=== PATIENT | female | born 1955 | race Caucasian/White ===

== ENCOUNTER 2017-06-08 11:20 | Day surgery (SDC) | payer OTHER ==
[~2017-06-08] VITALS: Ht 162.6 cm; Wt 72.2 kg
[~2017-06-08 11:20] MED LIST: LEVSOD25 PO; PENVK500 PO
[2017-06-08] MEDS ORDERED: ASPI325 (11:50)
== END 2017-06-08 14:25 | disposition home or self-care (01) ==
LOC: ORSCSDS 11:20
PROVIDERS: Surgery
PROC: 0DJD8ZZ Inspection of Lower Intestinal Tract, Via Natural or Artificial Opening Endoscopic (ICD-10-PCS; principal; 2017-06-08 12:00)
DX: Z12.11 Encounter for screening for malignant neoplasm of colon (principal); Z86.010 Personal history of colon polyps; E03.9 Hypothyroidism, unspecified; G47.33 Obstructive sleep apnea (adult) (pediatric); F41.8 Other specified anxiety disorders; F17.210 Nicotine dependence, cigarettes, uncomplicated; Z79.899 Other long term (current) drug therapy
CPT/HCPCS: J7120

== ENCOUNTER 2020-06-03 09:38 | Day surgery (SDC) | payer OTHER ==
[~2020-06-03] VITALS: Ht 164 cm; Wt 59.1 kg
[~2020-06-03 09:38] MED LIST changes: +ASPI325; +ATOR20 PO; +LEVSOD112 PO
--- NOTE | 2020-06-03 10:45 | NUR ---
Ambulatory in Day Surgery History, Chart, Medications and Allergies reviewed before start of procedure.Patient confirms NPO status and agrees with scheduled surgery. Patient states colon prep results clear.Lungs clear T/O to Auscultation.
--- NOTE | 2020-06-03 11:26 | NUR ---
06/03/20 1126 Radha Carr History, Chart, Medications and Allergies reviewed before start of procedure. Patient confirms NPO status and agrees with scheduled surgery.PATIENT DETERMINED TO BE ASA APPROPRIATE FOR PROPOFOL SEDATION PRIOR TO START OF PROCEDURE BY DR. ZARAGOZA. 3-LEAD EKG REVIEWED WITH PHYSICIAN PRIOR TO START OF PROCEDURE. MONITOR INTACT WITH CONTINUOUS PULSE OXIMETRY AND INTERMITTENT BP.
--- NOTE | 2020-06-03 12:32 | NUR ---
PRESCRIPTIONS CALLED IN TO [facility] PREFERRED PHARMACY; CIPRO 500 MG PO BID X 3 DAYS, FLAGYLL 500MG PO TID X 3 DAYS TO [facility]
--- NOTE | 2020-06-03 12:45 | NUR ---
Ambulatory in Day Surgery Discharge instructions reviewed with patient. Patient verbalizes understanding. Copy given to patient to take home. Patient States Post-Procedure ride home has been arranged. Discharged via wheelchair to private car for ride home.
== END 2020-06-03 13:04 | disposition home or self-care (01) ==
LOC: ORSCMMR 09:38
PROVIDERS: Internal Medicine Gastroenterology
PROC: 0DBE8ZX Excision of Large Intestine, Via Natural or Artificial Opening Endoscopic, Diagnostic (ICD-10-PCS; principal; 2020-06-03 10:30)
PROC: 0DB78ZX Excision of Stomach, Pylorus, Via Natural or Artificial Opening Endoscopic, Diagnostic (ICD-10-PCS; principal; 2020-06-03 10:30)
PROC: 0DBM8ZX Excision of Descending Colon, Via Natural or Artificial Opening Endoscopic, Diagnostic (ICD-10-PCS; principal; 2020-06-03 10:30)
PROC: 0DB98ZX Excision of Duodenum, Via Natural or Artificial Opening Endoscopic, Diagnostic (ICD-10-PCS; principal; 2020-06-03 10:30)
DX: R10.13 Epigastric pain (principal); R19.7 Diarrhea, unspecified; K52.832 Lymphocytic colitis; D12.4 Benign neoplasm of descending colon; Z86.010 Personal history of colon polyps; R63.4 Abnormal weight loss; K57.30 Diverticulosis of large intestine without perforation or abscess without bleeding; E78.00 Pure hypercholesterolemia, unspecified; E03.9 Hypothyroidism, unspecified; Z79.899 Other long term (current) drug therapy
CPT/HCPCS: 87493; 88305; 88342; A9270; J2250; J2704; J7120

== ENCOUNTER 2022-11-24 13:59 | Emergency (ER) | payer MEDICARE, OTHER ==
[~2022-11-24] VITALS: Ht 162.6 cm; Wt 55.8 kg
[2022-11-24 14:50] LABS: BASOPHILS ABSOLUTE AUTO 0.03 K/mm3 (0.00-0.23); BASOPHILS PERCENT AUTO 1 % (0-2); EOSINOPHILS PERCENT AUTO 0 % (0-6); Hemoglobin 14.5 g/dL (11.5-16.0); IMMATURE GRAN ABSOLUTE AUTO 0.02 K/mm3 (0.00-0.10); IMMATURE GRAN PERCENT AUTO 0 % (0-1); LYMPHOCYTES PERCENT AUTO 44 % (21-46); MONOCYTES ABSOLUTE AUTO 0.43 K/mm3 (0.16-1.47); MONOCYTES PERCENT AUTO 7 % (4-13); Mean Corpuscular HGB 32.7 pg (26.0-34.0); Mean Corpuscular HGB Conc 34.5 g/dL (31.5-36.5); Mean Corpuscular Volume 95 fL (80-100); Mean Platelet Volume 10.3 fL (9.1-12.4); NEUTROPHILS ABSOLUTE AUTO 3.22 K/mm3 (1.96-9.15); NEUTROPHILS PERCENT AUTO 49 % (41-73); Platelet Count 233 K/mm3 (150-400); RDW Coefficient Variation 14.5 % (11.7-14.2); RDW Standard Deviation 50.9 fL (35.1-46.3); Red Blood Cell Count 4.44 M/mm3 (3.80-5.20)
[2022-11-24 15:13] LABS: Alanine Aminotransfer (ALT/SGP 32 U/L (12-78); Albumin, Blood 3.9 g/dL (3.4-5.0); Alk Phos 71 U/L (50-136); Anion Gap 5 mmol/L (6-16); Aspartate Aminotrans (AST/SGOT 20 U/L (12-37); Bilirubin, Total 0.4 mg/dL (0.1-1.0); Blood Urea Nitrogen 10 mg/dL (8-24); Bun/Creatinine Ratio 20.7 (12.0-20.0); CO2, Blood 31 mmol/L (21-32); Calcium, Blood 9.9 mg/dL (8.5-10.1); Chloride, Blood 103 mmol/L (98-108); Creatinine, Blood 0.48 mg/dL (0.40-1.00); Ethanol (Alcohol), Blood, Med <3 mg/dL; Globulin, Blood 3.9 g/dL (2.2-4.0); Glomerular Filtration Rate 104 (60-); Glucose, Blood 90 mg/dL (70-99); Potassium, Blood 3.8 mmol/L (3.5-5.5); Sodium, Blood 139 mmol/L (136-145); Total Protein, Blood 7.8 g/dL (6.4-8.2)
[2022-11-24] MEDS ORDERED: ATOR10 PO (15:51)
[2022-11-24] MEDS ORDERED: MESALAMINE DR400 MG PO (15:51)
[2022-11-24] MEDS ORDERED: EUTHYROX100 MC1 PO (15:51)
[2022-11-24 16:03] LABS: Source, Urine Clean Catch
[2022-11-24 16:07] LABS: Appearance, Urine Clear (Clear); Bilirubin, Urine Neg (Neg); Blood, Urine 1+ (Neg); Color, Urine Yellow (P-Yellow); Glucose Qualitative, Urine Neg (Neg); Ketones, Urine 2+ (Neg); Leukocyte Esterase, Urine Neg (Neg); Nitrite, Urine Neg (Neg); Protein, Urine Neg (Neg); Urobilinogen, Urine NORM (Normal)
[2022-11-24 16:22] LABS: Bacteria Few /hpf; Squamous Epithelial Cells Few /hpf (Few); White Blood Cells, Urine 0-2 /hpf (0-5)
[2022-11-24 16:25] LABS: U Amphetamine Screen Not Detected; U Barbituate Screen Not Detected; U Benzodiazapine Screen Not Detected; U Buprenorphine Screen Not Detected; U Cannabinoids Screen DETECTED; U Cocaine Screen Not Detected; U Methadone Screen Not Detected; U Methamphetamine Screen Not Detected; U Opiates Screen Not Detected; U Oxycodone Screen Not Detected; U Phencyclidine Screen Not Detected; U Propoxyphene Screen Not Detected
[2022-11-24 16:27] LABS: Free Thyroxine 1.34 ng/dL (0.70-1.60)
[2022-11-24 16:28] LABS: Thyroid Stimulating Hormone 1.28 uIU/mL (0.360-4.800)
[2022-11-24 17:00] VITALS: BP 136/82
== END 2022-11-24 17:05 | disposition home or self-care (01) ==
LOC: ER 13:59
PROVIDERS: Emergency Medicine; Student in an Organized Health Care Education/Training Program
DX: R41.0 Disorientation, unspecified (principal); F41.9 Anxiety disorder, unspecified; F17.200 Nicotine dependence, unspecified, uncomplicated
CPT/HCPCS: 70450; 71046; 80053; 81001; 83735; 84439; 84443; 85025; 93005; 93010; 96374; 99285-25; G0480; J2405

== ENCOUNTER 2022-12-30 13:48 | Emergency (ER) | payer MEDICARE, OTHER ==
[~2022-12-30] VITALS: Ht 162.6 cm; Wt 47.6 kg
[~2022-12-30 13:48] MED LIST changes: +ATOR10 PO; +EUTHYROX100 MC1 PO; +MESALAMINE DR400 MG PO
[2022-12-30 14:27] LABS: BASOPHILS ABSOLUTE AUTO 0.03 K/mm3 (0.00-0.23); BASOPHILS PERCENT AUTO 1 % (0-2); EOSINOPHILS PERCENT AUTO 0 % (0-6); Hematocrit 39.9 % (33.0-51.0); Hemoglobin 13.5 g/dL (11.5-16.0); IMMATURE GRAN ABSOLUTE AUTO 0.02 K/mm3 (0.00-0.10); IMMATURE GRAN PERCENT AUTO 0 % (0-1); LYMPHOCYTES ABSOLUTE AUTO 2.27 K/mm3 (0.84-5.20); LYMPHOCYTES PERCENT AUTO 39 % (21-46); MONOCYTES ABSOLUTE AUTO 0.31 K/mm3 (0.16-1.47); MONOCYTES PERCENT AUTO 5 % (4-13); Mean Corpuscular HGB 32.2 pg (26.0-34.0); Mean Corpuscular HGB Conc 33.8 g/dL (31.5-36.5); Mean Corpuscular Volume 95 fL (80-100); Mean Platelet Volume 10.4 fL (9.1-12.4); NEUTROPHILS PERCENT AUTO 55 % (41-73); Platelet Count 232 K/mm3 (150-400); RDW Coefficient Variation 14.6 % (11.7-14.2); RDW Standard Deviation 50.7 fL (35.1-46.3); Red Blood Cell Count 4.19 M/mm3 (3.80-5.20); White Blood Cell Count 5.83 K/mm3 (4.00-11.30)
[2022-12-30 14:40] LABS: Albumin, Blood 3.6 g/dL (3.4-5.0); Albumin/Globulin Ratio 0.9 (0.8-1.8); Bilirubin, Total 0.4 mg/dL (0.1-1.0); Bun/Creatinine Ratio 17.3 (12.0-20.0); Calcium, Blood 9.5 mg/dL (8.5-10.1); Creatinine, Blood 0.46 mg/dL (0.40-1.00); Globulin, Blood 3.8 g/dL (2.2-4.0); Potassium, Blood 3.8 mmol/L (3.5-5.5); Total Protein, Blood 7.4 g/dL (6.4-8.2)
[2022-12-30] MEDS ORDERED: BUSPIRONE HCL7.5 M6 (16:29)
[2022-12-30 17:01] VITALS: BP 140/71
== END 2022-12-30 17:00 | disposition home or self-care (01) ==
LOC: ER 13:48
PROVIDERS: Emergency Medicine
DX: F44.0 Dissociative amnesia (principal); R51.9 Headache, unspecified; F41.9 Anxiety disorder, unspecified; E03.9 Hypothyroidism, unspecified; E78.00 Pure hypercholesterolemia, unspecified; F17.210 Nicotine dependence, cigarettes, uncomplicated; Z79.899 Other long term (current) drug therapy
CPT/HCPCS: 80053; 85025; 99284

== ENCOUNTER 2025-01-13 14:34 | Emergency (ER) | payer MEDICARE ==
[~2025-01-13] VITALS: Ht 162.6 cm; Wt 47.6 kg
[~2025-01-13 14:34] MED LIST changes: -ATOR10 PO; +BUSPIRONE HCL7.5 M6
[2025-01-13] MEDS ORDERED: NS 1,000 ML IV SCH (15:00)
[2025-01-13] MEDS ORDERED: Morphine Sulfate 4 MG/1 ML Injection IV ONE (15:00)
[2025-01-13] MEDS ORDERED: Ondansetron HCl 2 MG / ML 2ML Vial IV ONE (15:00)
[2025-01-13 15:26] LABS: BASOPHILS ABSOLUTE AUTO 0.05 K/mm3 (0.00-0.23); BASOPHILS PERCENT AUTO 0 % (0-2); EOSINOPHILS ABSOLUTE AUTO 0.00 K/mm3 (0.00-0.68); EOSINOPHILS PERCENT AUTO 0 % (0-6); Hematocrit 47.9 % (33.0-51.0); Hemoglobin 16.9 g/dL (11.5-16.0); IMMATURE GRAN ABSOLUTE AUTO 0.10 K/mm3 (0.00-0.10); IMMATURE GRAN PERCENT AUTO 1 % (0-1); LYMPHOCYTES ABSOLUTE AUTO 2.44 K/mm3 (0.84-5.20); LYMPHOCYTES PERCENT AUTO 14 % (21-46); MONOCYTES ABSOLUTE AUTO 1.14 K/mm3 (0.16-1.47); MONOCYTES PERCENT AUTO 7 % (4-13); Mean Corpuscular HGB Conc 35.3 g/dL (31.5-36.5); Mean Corpuscular Volume 90 fL (80-100); NEUTROPHILS ABSOLUTE AUTO 13.80 K/mm3 (1.96-9.15); NEUTROPHILS PERCENT AUTO 79 % (41-73); NRBC ABSOLUTE 0.00 K/mm3 (0.00-0.02); NRBC Auto 0.0 /100 WBC (0.0-0.2); Platelet Count 305 K/mm3 (150-400); RDW Coefficient Variation 14.6 % (11.7-14.2); RDW Standard Deviation 47.6 fL (35.1-46.3)
[2025-01-13 15:42] LABS: Alanine Aminotransfer (ALT/SGP 19.0 U/L (12-78); Albumin, Blood 3.2 g/dL (3.4-5.0); Albumin/Globulin Ratio 0.8 (0.8-1.8); Anion Gap 14.0 mmol/L (3-11); Aspartate Aminotrans (AST/SGOT 16.0 U/L (12-37); Bilirubin, Total 0.6 mg/dL (0.1-1.0); Blood Urea Nitrogen 16.0 mg/dL (8-24); CO2, Blood 25.0 mmol/L (21-32); Calcium, Blood 9.2 mg/dL (8.5-10.1); Chloride, Blood 97.0 mmol/L (98-108); Creatinine, Blood 1.18 mg/dL (0.40-1.00); Globulin, Blood 3.8 g/dL (2.2-4.0); Glucose, Blood 178.0 mg/dL (70-99); Potassium, Blood 4.3 mmol/L (3.5-5.5); Sodium, Blood 132.0 mmol/L (136-145); Total Protein, Blood 7.0 g/dL (6.4-8.2)
[2025-01-13] MEDS ORDERED: PRED20 PO (18:40)
[2025-01-13] MEDS ORDERED: ONDA4ODT MM (18:40)
[2025-01-13 19:01] VITALS: BP 108/80
[2025-01-13] MEDS ORDERED: RX Prepack 2 Tabs Ondansetron ODT 4MG UD ONE (19:45)
[2025-01-17] MEDS ORDERED: LEVSOD100 PO (23:26)
== END 2025-01-13 19:03 | disposition home or self-care (01) ==
LOC: ER 14:34
PROVIDERS: Student in an Organized Health Care Education/Training Program
DX: K52.9 Noninfective gastroenteritis and colitis, unspecified (principal); E78.00 Pure hypercholesterolemia, unspecified; E03.9 Hypothyroidism, unspecified; F17.210 Nicotine dependence, cigarettes, uncomplicated; Z79.899 Other long term (current) drug therapy
CPT/HCPCS: 74177; 80053; 83690; 85025; 96374-59; 99284-25; A9270; J2405; J7030; Q9967

== ENCOUNTER 2025-01-17 17:15 | Inpatient (IN) | payer MEDICARE ==
[~2025-01-17] VITALS: Ht 162.6 cm; Wt 54.2 kg
[~2025-01-17 17:15] MED LIST changes: +ATOR10 PO; +ONDA4ODT MM; +PRED20 PO
[2025-01-17] MEDS ORDERED: NS 1,000 ML IV SCH ×2 (17:35→22:00)
[2025-01-17] MEDS ORDERED: Ondansetron HCl 2 MG / ML 2ML Vial IV ONE (17:35)
[2025-01-17] MEDS ORDERED: HYDROmorphone HCl/Pf 1MG SYR IV ONE ×2 (17:35→21:35)
[2025-01-17 17:54] LABS: Hematocrit 48.1 % (33.0-51.0); Hemoglobin 16.7 g/dL (11.5-16.0); Mean Corpuscular HGB Conc 34.7 g/dL (31.5-36.5); Mean Corpuscular Volume 90 fL (80-100); NRBC ABSOLUTE 0.00 K/mm3 (0.00-0.02); NRBC Auto 0.0 /100 WBC (0.0-0.2); Platelet Count 284 K/mm3 (150-400); RDW Coefficient Variation 13.7 % (11.7-14.2); RDW Standard Deviation 45.3 fL (35.1-46.3)
[2025-01-17 18:20] LABS: BAND PERCENT MAN 18 % (0-8); BASOPHILS ABSOLUTE MAN 0.00 K/mm3 (0.00-0.23); BASOPHILS PERCENT MAN 0 % (0-2); EOSINOPHILS ABSOLUTE MAN 0.05 K/mm3 (0.00-0.68); EOSINOPHILS PERCENT MAN 1 % (0-6); LYMPHOCYTES ABSOLUTE MAN 1.48 K/mm3 (0.84-5.20); LYMPHOCYTES PERCENT MAN 25 % (21-46); MONOCYTES ABSOLUTE MAN 0.35 K/mm3 (0.16-1.47); MONOCYTES PERCENT MAN 6 % (4-13); NEUTROPHILS ABSOLUTE MAN 4.04 K/mm3 (1.96-9.15); SEG NEUTROPHILS PERCENT MAN 50 % (41-73)
[2025-01-17 18:27] LABS: Alanine Aminotransfer (ALT/SGP 21.0 U/L (12-78); Albumin, Blood 3.3 g/dL (3.4-5.0); Albumin/Globulin Ratio 0.8 (0.8-1.8); Anion Gap 10.0 mmol/L (3-11); Aspartate Aminotrans (AST/SGOT 22.0 U/L (12-37); Bilirubin, Total 0.9 mg/dL (0.1-1.0); Blood Urea Nitrogen 22.0 mg/dL (8-24); CO2, Blood 26.0 mmol/L (21-32); Calcium, Blood 9.9 mg/dL (8.5-10.1); Chloride, Blood 98.0 mmol/L (98-108); Creatinine, Blood 0.49 mg/dL (0.40-1.00); Globulin, Blood 4.1 g/dL (2.2-4.0); Glucose, Blood 173.0 mg/dL (70-99); Potassium, Blood 4.3 mmol/L (3.5-5.5); Sodium, Blood 130.0 mmol/L (136-145); Total Protein, Blood 7.4 g/dL (6.4-8.2)
[2025-01-17] MEDS ORDERED: ASPI81CH PO (20:34)
[2025-01-17] MEDS ORDERED: Prochlorperazine Edisylate 10 mg Vial IV ONE (21:35)
[2025-01-17] MEDS ORDERED: Ondansetron HCl 2 MG / ML 2ML Vial IV PRN (21:55)
[2025-01-17] MEDS ORDERED: FLU VACC TS2025(65UP)/MF59C/PF 45 MCG/0.5 ML SYRINGE IM SCH (21:55)
[2025-01-17] MEDS ORDERED: HYDROmorphone HCl/Pf 1MG SYR IV PRN (21:55)
[2025-01-17] MEDS ORDERED: Piperacillin/Tazobactam Sod 3.375 GM in NS 100 ML IV SCH (22:31)
[2025-01-17] MEDS ORDERED: EUTHYROX88 MCG PO (23:26)
[2025-01-18] VITALS (8 sets, daily range): BP systolic 87–146; BP diastolic 60–83
[2025-01-18] MEDS ORDERED: FentaNYL Citrate 50 MCG/ML 2 ML Injection IV PRN ×3 (01:20→11:05)
[2025-01-18 06:01] LABS: Hematocrit 48.3 % (33.0-51.0); Hemoglobin 16.9 g/dL (11.5-16.0); Mean Corpuscular HGB Conc 35.0 g/dL (31.5-36.5); Mean Corpuscular Volume 91 fL (80-100); NRBC ABSOLUTE 0.00 K/mm3 (0.00-0.02); NRBC Auto 0.0 /100 WBC (0.0-0.2); Platelet Count 270 K/mm3 (150-400); RDW Coefficient Variation 13.7 % (11.7-14.2); RDW Standard Deviation 46.5 fL (35.1-46.3)
[2025-01-18] MEDS ORDERED: MESALAMINE DR400 MG PO (06:08)
[2025-01-18 06:13] LABS: Campylobacter Sp Detected (NOT DETECT)
[2025-01-18 06:14] LABS: E. Coli O157 Not Detected (NOT DETECT); Enteroaggregative E. coli-EAEC Not Detected (NOT DETECT); Enteropathogenic E. coli-EPEC Not Detected (NOT DETECT); Enterotoxigenic E. coli-ETEC Not Detected (NOT DETECT); Salmonella Sp Not Detected (NOT DETECT); Shiga Toxin-prod E. coli-STEC Not Detected (NOT DETECT); Shigella/Enteroin E. coli-EIEC Not Detected (NOT DETECT); Vibrio Sp Not Detected (NOT DETECT)
[2025-01-18 06:33] LABS: BAND PERCENT MAN 44 % (0-8); BASOPHILS ABSOLUTE MAN 0.00 K/mm3 (0.00-0.23); BASOPHILS PERCENT MAN 0 % (0-2); EOSINOPHILS ABSOLUTE MAN 0.00 K/mm3 (0.00-0.68); EOSINOPHILS PERCENT MAN 0 % (0-6); LYMPHOCYTES ABSOLUTE MAN 1.94 K/mm3 (0.84-5.20); LYMPHOCYTES PERCENT MAN 21 % (21-46); METAMYELOCYTE ABSOLUTE MAN 0.18 K/mm3 (0.00-0.00); METAMYELOCYTE PERCENT MAN 2 % (0-0); MONOCYTES ABSOLUTE MAN 1.57 K/mm3 (0.16-1.47); MONOCYTES PERCENT MAN 17 % (4-13); MYELOCYTE ABSOLUTE MAN 0.18 K/mm3 (0.00-0.00); MYELOCYTE PERCENT MAN 2 % (0-0); NEUTROPHILS ABSOLUTE MAN 5.37 K/mm3 (1.96-9.15); SEG NEUTROPHILS PERCENT MAN 14 % (41-73)
--- NOTE | 2025-01-18 06:45 | NUR ---
SHIFT SUMMARY: NEW ED ADMIT ARRIVED AT APPROX. 0435 ON GURNEY ESCORTED BY [address]HWAY MAINTENANCE TECHNICIAN. REPORT FROM HILARIO LOMAS. A&O X4. REPORTED 12/10 PAIN IN LOWER ABDOMEN ON ARRIVAL. MULTIPLE LIQUID STOOLS SINCE ARRIVAL TO FLOOR. PLACED IN CONTACT ISO PENDING GI PANEL RESULTS. IVF RUNNING AT 75 ML/HR ORDERED. ZOFRAN AND FENTANYL GIVEN ONCE PER EMAR. ABX RUNNING AT THIS TIME. PT'S FIANCE IS AT BEDSIDE, APPEARS SUPPORTIVE. CALL LIGHT IN REACH. BED ALARM FOR SAFETY WITH NARCOTIC USE AND PAIN.
[2025-01-18 07:07] LABS: Anion Gap 9.0 mmol/L (3-11); Blood Urea Nitrogen 27.0 mg/dL (8-24); CO2, Blood 24.0 mmol/L (21-32); Calcium, Blood 9.4 mg/dL (8.5-10.1); Chloride, Blood 102.0 mmol/L (98-108); Creatinine, Blood 0.81 mg/dL (0.40-1.00); Glucose, Blood 182.0 mg/dL (70-99); Potassium, Blood 3.7 mmol/L (3.5-5.5); Sodium, Blood 131.0 mmol/L (136-145)
--- NOTE | 2025-01-18 08:46 | NUR ---
ASSUMED CARE OF PT- CALLED DR SANTOS. PT HAD LOW BP ON AM VITALS. CALLED DR FOR INCREASE IN PRIORITY FOR ASSESSMENT. PT IS LETHARGIC AND HAVING LIQUID LOOSE STOOLS, SHE IS VERY UNDERWEIGHT. SHE REQUIRED A FULL BED CHANGE AT THE TIME OF SHIFT CHANGE, THIS IS THE 5TH SINCE HER ARRIVAL ON MED FLOOR. PT IS REQUESTING PAIN MEDS. BP RECHECK, CHANGED TO A SMALLER, MORE APPROPRIATELY SIZED BP CUFF, BP IS AT THE SAME LEVEL HER BASELINE HR 48. DR AT THE BEDSIDE REQUESTED ORDER FOR TELE FOR CLOSER MONITORING. ORDER PLACED THROUGH ORDER MANAGEMENT
--- NOTE | 2025-01-18 14:39 | NUR ---
CALLED DR EDGAR- RECIEVED A CALL FROM TELE PT HAD A 6 SECOND RUN OF SVT RATE OF 200BPM. VS CHECKED, BP LOW SBP 104. CALLED DR EDGAR AND SPOKE TO HIM NEW DOSE OF METOPROLOL TARTRATE TO START NOW. WILL ADMINISTER ONCE VERIFIED BY PHARMACY. PT STATED SHE DIDN'T NOTICE THE HIGH HR AT ALL. PT IN BED, CALL LIGHT IN REACH NO S&S OF DISTRESS NOTED AT THIS TIME. SO AT THE BEDSIDE.
[2025-01-18] MEDS ORDERED: Magnesium Sulf 2 GM/Water 50ML 50 ML IV ONE (14:45)
--- NOTE | 2025-01-18 19:56 | NUR ---
SHIFT SUMMARY- PT SEEMS TO BE FEELING BETTER THIS EVENING WHEN COMPARED TO THIS MORNING. SHE WAS ABLE TO TRANSFER TO THE BSC A FEW TIMES TODAY. SHE HAS BEEN MOSTLY INCONTINENT OF BOWEL. PT ASSISTED TO THE BSC AT THE TIME OF BEDSIDE REPORT, SHE HAD INCONTINENT STOOL WHILE TRYING TO GET TO THE COMMODE. PT IS NOW IN BED, CALL LIGHT IN REACH NO S&S OF DISTRESS NOTED. SO AT THE BEDSIDE. BEDSIDE REPORT COMPLETED.
[2025-01-19] VITALS (16 sets, daily range): BP systolic 85–108; BP diastolic 60–79
[2025-01-19] MEDS ORDERED: FentaNYL Citrate 50 MCG/ML 2 ML Injection IV PRN (02:35)
[2025-01-19 02:43] LABS: Hematocrit 36.9 % (33.0-51.0); Hemoglobin 13.0 g/dL (11.5-16.0); Mean Corpuscular HGB Conc 35.2 g/dL (31.5-36.5); Mean Corpuscular Volume 90 fL (80-100); NRBC ABSOLUTE 0.00 K/mm3 (0.00-0.02); NRBC Auto 0.0 /100 WBC (0.0-0.2); Platelet Count 173 K/mm3 (150-400); RDW Coefficient Variation 13.6 % (11.7-14.2); RDW Standard Deviation 44.8 fL (35.1-46.3)
[2025-01-19 02:56] LABS: Magnesium, Blood 2.1 mg/dL (1.6-2.4)
[2025-01-19 03:22] LABS: Alanine Aminotransfer (ALT/SGP 16.0 U/L (12-78); Albumin, Blood 2.0 g/dL (3.4-5.0); Albumin/Globulin Ratio 0.7 (0.8-1.8); Anion Gap 11.0 mmol/L (3-11); Aspartate Aminotrans (AST/SGOT 17.0 U/L (12-37); Bilirubin, Total 0.6 mg/dL (0.1-1.0); Blood Urea Nitrogen 18.0 mg/dL (8-24); CO2, Blood 23.0 mmol/L (21-32); Calcium, Blood 8.0 mg/dL (8.5-10.1); Chloride, Blood 101.0 mmol/L (98-108); Creatinine, Blood 0.53 mg/dL (0.40-1.00); Globulin, Blood 2.8 g/dL (2.2-4.0); Glucose, Blood 74.0 mg/dL (70-99); Phosphorus, Blood 2.7 mg/dL (2.5-4.9); Potassium, Blood 3.7 mmol/L (3.5-5.5); Sodium, Blood 131.0 mmol/L (136-145); Total Protein, Blood 4.8 g/dL (6.4-8.2)
[2025-01-19] MEDS ORDERED: Metoprolol Tartrate 1 MG/ML 5 ML VIAL IV ONE ×3 (03:35→06:30)
[2025-01-19 03:54] LABS: BAND PERCENT MAN 53 % (0-8); BASOPHILS ABSOLUTE MAN 0.00 K/mm3 (0.00-0.23); BASOPHILS PERCENT MAN 0 % (0-2); EOSINOPHILS ABSOLUTE MAN 0.00 K/mm3 (0.00-0.68); EOSINOPHILS PERCENT MAN 0 % (0-6); LYMPHOCYTES ABSOLUTE MAN 1.67 K/mm3 (0.84-5.20); LYMPHOCYTES PERCENT MAN 16 % (21-46); METAMYELOCYTE ABSOLUTE MAN 0.10 K/mm3 (0.00-0.00); METAMYELOCYTE PERCENT MAN 1 % (0-0); MONOCYTES ABSOLUTE MAN 0.83 K/mm3 (0.16-1.47); MONOCYTES PERCENT MAN 8 % (4-13); MYELOCYTE ABSOLUTE MAN 0.20 K/mm3 (0.00-0.00); MYELOCYTE PERCENT MAN 2 % (0-0); NEUTROPHILS ABSOLUTE MAN 7.62 K/mm3 (1.96-9.15); SEG NEUTROPHILS PERCENT MAN 20 % (41-73)
--- NOTE | 2025-01-19 07:04 | NUR ---
TRANSFER TO PCU CALL FROM NURSING UNDERWATER PHOTOGRAPHER THAT PATIENT NEEDED TO BE TRANSFERRED TO PCU D/T HR. PATIENT'S HR SUSTAINING 140s SINCE AROUND 0000. MULTIPLE CALLS MADE TO PRIMARY RN THROGHOUT THE NIGHT WITH NO CHANGES IN HR. THIS RN TO 310 AROUND 0300 TO ASSIST PRIMARY RN WITH CONTROLLING HR. THIS RN CALLED DR. MONK WITH [facility] THAT PATIENT STILL SUSTAINING. ORDER FOR IV METOPROLOL ORDERED AND ADMINISTERED PER EMAR. PRIMARY RN UPDATED WITH INFOMATION AND RELAYED THAT DR. MONK SHOULD BE NOTIFIED IF HR CONTINUES TO BE ELEVATED. HR CONTINED TO SUSTAIN 130s. THIS RN NOTIFIED THAT PATIENT NEEDED TO BE TRANSFERRED FOR AMIO GTT. NO NEW ORDERS PLACED PRIOR TO ARRIVAL TO PCU. CALL PLACED TO DR MONK REGARDING PATIENT'S CURRENT VITALS AND STATUS. PATIENT RESTING IN BED, HR 130s. ADDITIONAL IV PLACED. ORDER FOR 5MG IV METOPROLOL ORDERED AND ADMINSITERED. NO OTHER ORDERS AT THIS TIME.
[2025-01-19] MEDS ORDERED: Multivitamins 1 Tab PO SCH (09:00)
[2025-01-19] MEDS ORDERED: Piperacillin/Tazobactam Sod 3.375 GM in NS 100 ML IV ONE (16:05)
[2025-01-20] VITALS (7 sets, daily range): BP systolic 98–130; BP diastolic 63–91
[2025-01-20] MEDS ORDERED: Piperacillin/Tazobactam Sod 3.375 GM in NS 100 ML IV SCH
[2025-01-20 04:39] LABS: Magnesium, Blood 1.8 mg/dL (1.6-2.4)
[2025-01-20 04:47] LABS: Hematocrit 33.4 % (33.0-51.0); Hemoglobin 11.7 g/dL (11.5-16.0); Mean Corpuscular HGB Conc 35.0 g/dL (31.5-36.5); Mean Corpuscular Volume 90 fL (80-100); NRBC ABSOLUTE 0.00 K/mm3 (0.00-0.02); NRBC Auto 0.0 /100 WBC (0.0-0.2); Platelet Count 174 K/mm3 (150-400); RDW Coefficient Variation 14.2 % (11.7-14.2); RDW Standard Deviation 47.3 fL (35.1-46.3)
[2025-01-20 04:48] LABS: Alanine Aminotransfer (ALT/SGP 13.0 U/L (12-78); Albumin, Blood 1.8 g/dL (3.4-5.0); Albumin/Globulin Ratio 0.6 (0.8-1.8); Anion Gap 11.0 mmol/L (3-11); Aspartate Aminotrans (AST/SGOT 17.0 U/L (12-37); Bilirubin, Total 0.5 mg/dL (0.1-1.0); Blood Urea Nitrogen 11.0 mg/dL (8-24); CO2, Blood 23.0 mmol/L (21-32); Calcium, Blood 7.9 mg/dL (8.5-10.1); Chloride, Blood 99.0 mmol/L (98-108); Creatinine, Blood 0.44 mg/dL (0.40-1.00); Globulin, Blood 2.8 g/dL (2.2-4.0); Glucose, Blood 39.0 mg/dL (70-99); Phosphorus, Blood 2.3 mg/dL (2.5-4.9); Potassium, Blood 3.2 mmol/L (3.5-5.5); Sodium, Blood 130.0 mmol/L (136-145); Total Protein, Blood 4.6 g/dL (6.4-8.2)
[2025-01-20 05:21] LABS: BAND PERCENT MAN 25 % (0-8); BASOPHILS ABSOLUTE MAN 0.00 K/mm3 (0.00-0.23); BASOPHILS PERCENT MAN 0 % (0-2); EOSINOPHILS ABSOLUTE MAN 0.00 K/mm3 (0.00-0.68); EOSINOPHILS PERCENT MAN 0 % (0-6); LYMPHOCYTES % ATYPICAL MANUAL 1 % (0-0); LYMPHOCYTES ABSOLUTE MAN 2.90 K/mm3 (0.84-5.20); LYMPHOCYTES PERCENT MAN 14 % (21-46); METAMYELOCYTE ABSOLUTE MAN 0.19 K/mm3 (0.00-0.00); METAMYELOCYTE PERCENT MAN 1 % (0-0); MONOCYTES ABSOLUTE MAN 0.58 K/mm3 (0.16-1.47); MONOCYTES PERCENT MAN 3 % (4-13); NEUTROPHILS ABSOLUTE MAN 15.68 K/mm3 (1.96-9.15); SEG NEUTROPHILS PERCENT MAN 56 % (41-73)
[2025-01-20] MEDS ORDERED: D5W-1/2NS KCl 40mEq 1,000 ML IV SCH (06:00)
--- NOTE | 2025-01-20 06:49 | NUR ---
SHIFT SUMMARY PT A&O X4, CALM, COOPERATIVE TO CARE. GENERALIZED WEAKNESS. PT IN SINUS LIBERTY, HR IN THE 50'S-60'S. SHE DENIES ANY CP/PRESSURE, NUMB/TINGLING. SBP IN THE 90' S-100'S, MAP >65. SpO2 >92% ON RA. SHE DENIES ANY SOB. PT AMBULATING TO BATHROOM WITH NURSE ASSIST. PT HAS HAD BM X2 T/0 SHIFT. SHE REPORTS INTERMITTENT NASEAU WITHOUT ANY EPISODES OF VOMITING. +BS, SHE HAS SOME MILD ABD DISTENTION/TENDERNESS/PAIN, MEDICATING PER EMAR. PT HAD LABS COME BACK THIS AM WITH A CRITICAL CBG OF 39. THIS RN AT BEDSIDE, PT DENIES ANY N/V, DIZZY, LIGHTEADED, NOT DIAPHORETIC. PT UNABLE TO TOLERATE PO JUICE/CARBOHYDRATES. PT WAS GIVEN 50 OF D5, PER PROTOCOL, MD NOTIFIED. NEW MAINTENANCE FLUIDS ORDERED, SEE EMAR. PT'S CBG AT 172 ON RECHECK. PT RESTING IN BED AT THIS TIME, SON AT BEDSIDE T/O NIGHT. MAINTENANCE FLUIDS INFUSING PER EMAR. WILL REPORT TO ONCOMING RN.
[2025-01-20] MEDS ORDERED: TPN Consult Notification XX ONE (13:45)
[2025-01-20] MEDS ORDERED: Parenteral Electolytes 40 ML,POTASSIUM PHOS,M-BASIC-D-BASIC 30 MMOL,Multivitamins 10 ML... IV SCH (17:00)
--- NOTE | 2025-01-20 18:33 | NUR ---
SHIFT SUMMARY: A/O X4, PLEASANT AND COOPERATIVE WITH CARE, GENERALIZED WEAKNESS. HRR 50'S-60'S, PT STATES HR IS HER BASELINE, MAP >65, DENIES CHEST PAIN OR PRESSURE. SPO2 >92% ON RA, DENIES SOB. CONTINENT TO URINE AND STOOL, 1 PERSON ASSIST TO BATHROOM. PT REPORTS DECREASED NAUSEA, NO VOMITING, AND DECREASED DIARRHEA. APPETITE REMAINS POOR BUT ATTEMPTED TO SIP ON CLEAR ENSURE AND TOLERATED IT WELL. ABD REAMAINS PAINFUL AND TENDER TO LIGHT PALPATION. D5 1/2 NS GTT DC'D PER EMAR AND PPN ADDED, Q6 CBG'S. LONG TIME BOYFRIEND AT BEDSIDE. Lyndon+ MD JADYN NOTIFIED.
[2025-01-21] VITALS (7 sets, daily range): BP systolic 118–145; BP diastolic 68–82
[2025-01-21 05:11] LABS: Hematocrit 35.2 % (33.0-51.0); Hemoglobin 12.2 g/dL (11.5-16.0); Mean Corpuscular HGB Conc 34.7 g/dL (31.5-36.5); Mean Corpuscular Volume 92 fL (80-100); NRBC ABSOLUTE 0.00 K/mm3 (0.00-0.02); NRBC Auto 0.0 /100 WBC (0.0-0.2); Platelet Count 174 K/mm3 (150-400); RDW Coefficient Variation 14.0 % (11.7-14.2); RDW Standard Deviation 46.9 fL (35.1-46.3)
[2025-01-21 05:33] LABS: Alanine Aminotransfer (ALT/SGP 13 U/L (12-78); Albumin, Blood 1.8 g/dL (3.4-5.0); Albumin/Globulin Ratio 0.7 (0.8-1.8); Anion Gap 7 mmol/L (3-11); Aspartate Aminotrans (AST/SGOT 13 U/L (12-37); Bilirubin, Total 0.3 mg/dL (0.1-1.0); Blood Urea Nitrogen 7 mg/dL (8-24); CO2, Blood 29 mmol/L (21-32); Calcium, Blood 7.5 mg/dL (8.5-10.1); Chloride, Blood 99 mmol/L (98-108); Creatinine, Blood 0.46 mg/dL (0.40-1.00); Globulin, Blood 2.7 g/dL (2.2-4.0); Glucose, Blood 191 mg/dL (70-99); Magnesium, Blood 1.6 mg/dL (1.6-2.4); Phosphorus, Blood 2.0 mg/dL (2.5-4.9); Potassium, Blood 3.5 mmol/L (3.5-5.5); Sodium, Blood 131 mmol/L (136-145); Total Protein, Blood 4.5 g/dL (6.4-8.2); Triglycerides 142 mg/dL (30-160)
[2025-01-21 05:36] LABS: BAND PERCENT MAN 8 % (0-8); BASOPHILS ABSOLUTE MAN 0.00 K/mm3 (0.00-0.23); BASOPHILS PERCENT MAN 0 % (0-2); EOSINOPHILS ABSOLUTE MAN 0.00 K/mm3 (0.00-0.68); EOSINOPHILS PERCENT MAN 0 % (0-6); LYMPHOCYTES ABSOLUTE MAN 3.30 K/mm3 (0.84-5.20); LYMPHOCYTES PERCENT MAN 25 % (21-46); MONOCYTES ABSOLUTE MAN 0.39 K/mm3 (0.16-1.47); MONOCYTES PERCENT MAN 3 % (4-13); NEUTROPHILS ABSOLUTE MAN 9.51 K/mm3 (1.96-9.15); SEG NEUTROPHILS PERCENT MAN 64 % (41-73)
--- NOTE | 2025-01-21 05:59 | NUR ---
SHIFT SUMMARY PT A&O X4, CALM, COOPERATIVE TO CARE. GENERALIZED WEAKNESS. PT IN SINUS LIBERTY, HR IN THE 50'S. SHE DENIES ANY CP/PRESSURE, NUMB/TINGLING. SBP STABLE. SpO2 >92% ON RA. SHE DENIES ANY SOB. PT AMBULATING TO BATHROOM WITH NURSE ASSIST FOR CORD MANAGEMENT AND WEAKNESS. SHE HAS DENIED ANY N/V T/O NIGHT. +BS, PT HAD TWO EPISODES OF ABD PAIN T/O SHIFT, MEDICATED PER EMAR. PT HAS PPN INFUSING AT 95 ML/HR. PT HAD PPN INFUSING IN RIGHT FOREARM IV, THIS RN WENT TO ROOM AND IV HAD INFILTRATED, ELEVATED ARM AND APPLIED HEAT. PT REPORTS ARM FEELS BETTER, STILL SOME SWELLING PRESENT, BUT IMPROVED. MAINTENANCE FLUIDS INFUSING PER EMAR. WILL REPORT TO ONCOMING RN.
[2025-01-21] MEDS ORDERED: Mag Sulfate 1 GM/D5% 100ML 100 ML IV STA (07:06)
[2025-01-21] MEDS ORDERED: Potassium Phosphate Dibasic 15 MM in Dextrose 5% 250 ML IV STA (07:07)
[2025-01-21] MEDS ORDERED: NS 1,000 ML IV SCH (12:00)
[2025-01-21] MEDS ORDERED: Pantoprazole Sodium 40 MG Injection IV SCH (14:00)
--- NOTE | 2025-01-21 18:15 | NUR ---
EOS: PT A&OX4, PLEASANT, COOPERATIVE. UTILIZES CALL LIGHT APPROPRIATELY. PIV X2, PATENT, INFUSING, WNL. UP X1 ASSIT TO BSC D/T FREQUENCY AND URGENCY OF BOWEL MOVEMENTS. PT ATE 0% OF HER MEALS TODAY. PT ENDORSES NAUSEA AND ABD PAIN. PAIN MANAGEMENT INTERVENTIONS CHANGED FROM TRAMADOL Q8HR PRN TO Q6HR PRN. HEAT APPLIED TO ABD, PT STATES THIS IS HELPING. EDUCATION PROVIDED REGARDING OPIOID USE AND BOWEL FUNCTION; PT AND FAMILY VERBALIZED UNDERSTANDING- NEEDS REINFORCEMENT. PT TOLERATING PPN. NO HYPOGLYCEMIC EPISODES, BG CHECKS Q6HR. BG RANGE TODAY 160-194. MD SWITCHED IVF TO NS AT 75MLS/HR. MAGNESIUM AND POTASSIUM PHOSPHATE ADMINISTERED THIS AM PER MD ORDERS. MEDICATION EDUCATION PROVIDED. VSS ON RA. LBM 01/21/25. FALL PREVENTION AND SAFETY EDUCATION PROVIDED; VERBALIZED UNDERSTANDING BY PT AND FAMILY. RUE WITH EDEMA R/T PREVIOUS IV INFILTRATION. PT DENIES PAIN, SWELLING TO RUE HAS DECREASED FROM THIS MORNING. ELEVATION OF EXTREMITY IS HELPING.
[2025-01-21] MEDS ORDERED: Lactobacil 2-S.Thermo-Bifido 1 1 Cap PO SCH (21:00)
[2025-01-22 04:21] LABS: BASOPHILS ABSOLUTE AUTO 0.03 K/mm3 (0.00-0.23); BASOPHILS PERCENT AUTO 1 % (0-2); EOSINOPHILS ABSOLUTE AUTO 0.00 K/mm3 (0.00-0.68); EOSINOPHILS PERCENT AUTO 0 % (0-6); Hematocrit 34.6 % (33.0-51.0); Hemoglobin 12.1 g/dL (11.5-16.0); Mean Corpuscular HGB Conc 35.0 g/dL (31.5-36.5); Mean Corpuscular Volume 91 fL (80-100); NRBC ABSOLUTE 0.00 K/mm3 (0.00-0.02); NRBC Auto 0.0 /100 WBC (0.0-0.2); Platelet Count 174 K/mm3 (150-400); RDW Coefficient Variation 13.8 % (11.7-14.2); RDW Standard Deviation 46.4 fL (35.1-46.3)
[2025-01-22 04:24] LABS: IMMATURE GRAN ABSOLUTE AUTO 0.11 K/mm3 (0.00-0.10); IMMATURE GRAN PERCENT AUTO 2 % (0-1); LYMPHOCYTES ABSOLUTE AUTO 0.79 K/mm3 (0.84-5.20); LYMPHOCYTES PERCENT AUTO 14 % (21-46); MONOCYTES ABSOLUTE AUTO 0.10 K/mm3 (0.16-1.47); MONOCYTES PERCENT AUTO 2 % (4-13); NEUTROPHILS ABSOLUTE AUTO 4.62 K/mm3 (1.96-9.15); NEUTROPHILS PERCENT AUTO 82 % (41-73)
[2025-01-22 04:41] LABS: Alanine Aminotransfer (ALT/SGP 18.0 U/L (12-78); Albumin, Blood 2.0 g/dL (3.4-5.0); Albumin/Globulin Ratio 0.7 (0.8-1.8); Anion Gap 7.0 mmol/L (3-11); Aspartate Aminotrans (AST/SGOT 14.0 U/L (12-37); Bilirubin, Total 0.3 mg/dL (0.1-1.0); Blood Urea Nitrogen 7.0 mg/dL (8-24); CO2, Blood 30.0 mmol/L (21-32); Calcium, Blood 7.6 mg/dL (8.5-10.1); Chloride, Blood 98.0 mmol/L (98-108); Creatinine, Blood 0.36 mg/dL (0.40-1.00); Globulin, Blood 3.0 g/dL (2.2-4.0); Glucose, Blood 238.0 mg/dL (70-99); Magnesium, Blood 1.8 mg/dL (1.6-2.4); Phosphorus, Blood 2.7 mg/dL (2.5-4.9); Potassium, Blood 4.0 mmol/L (3.5-5.5); Sodium, Blood 131.0 mmol/L (136-145); Total Protein, Blood 5.0 g/dL (6.4-8.2)
[2025-01-22 08:53] VITALS: BP 159/95
[2025-01-22 11:25] VITALS: BP 138/81
[2025-01-22 15:13] VITALS: BP 147/73
[2025-01-22 16:10] VITALS: BP 134/73
--- NOTE | 2025-01-22 16:13 | NUR ---
TRANSFER TO 310 / SHIFT SUMMARY PT A&Ox4, CALLS AND COMMUNICATES NEEDS APPROPRIATELY. BP STABLE, SINUS LIBERTY 50's, DENIES CP/PRESSURE. SpO2> 92% RA, DENIES SOB. SBA TO BSC, CONTINENT OF URINE, PASSING GAS. C/O ABD PAIN AND DISTENTION BUT STATES IT IS BETTER THAN PREVIOUS SHIFTS, MANAGED PER EMAR. PT REFUSED SHOWER TODAY AND STATED THAT SHE WANTED TO TAKE IT EASY TODAY AND WOULD SHOWER TOMORROW. PPN INFUSING @ 95 mLs/hr IN PRETTY, NS @ 75 mLs/hr IN LFA. REPORT GIVEN TO MEDICAL FLOOR RN, PT TRANSFERED WITH ALL PT BELONGINGS VIA WHEELCHAIR BY CLINICAL STAFF MEMBER. NOTIFIED OF TRANSFER AND MOVED ALL PT BELONGINGS TO 310.
--- NOTE | 2025-01-22 18:43 | NUR ---
SHIFT SUMMARY: PATIENT CAME TO MEDICAL FLOOR FROM PCU 12. PATIENT IN GOOD SPIRITS AND IS ATTEMPTING TO EAT HER FULL LIQUID DINNER. PATIENT MEDICATED FOR PAIN ONCE SENSE COMING TO MEDICAL FLOOR. SEE EMAR FOR DETAILS. PPN STILL RUNNING AT 95ML/HR. DR. PLASCENCIA NOTIFIED OF INCREASING BLOOD SUGARS. SHE LET THIS NURSE KNOW TO NOTIFY NIGHT PHYSICIAN IF BLOOD SUGARS ARE ELEVATED ABOVE 250. THIS NURSE VERBALIZED UNDERSTANDING.
[2025-01-22 20:04] VITALS: BP 139/71
[2025-01-23 02:20] VITALS: BP 141/80
[2025-01-23 06:05] LABS: BASOPHILS ABSOLUTE AUTO 0.04 K/mm3 (0.00-0.23); BASOPHILS PERCENT AUTO 0 % (0-2); EOSINOPHILS ABSOLUTE AUTO 0.00 K/mm3 (0.00-0.68); EOSINOPHILS PERCENT AUTO 0 % (0-6); Hematocrit 31.5 % (33.0-51.0); Hemoglobin 11.0 g/dL (11.5-16.0); Mean Corpuscular HGB Conc 34.9 g/dL (31.5-36.5); Mean Corpuscular Volume 91 fL (80-100); NRBC ABSOLUTE 0.00 K/mm3 (0.00-0.02); NRBC Auto 0.0 /100 WBC (0.0-0.2); Platelet Count 172 K/mm3 (150-400); RDW Coefficient Variation 13.9 % (11.7-14.2); RDW Standard Deviation 46.1 fL (35.1-46.3)
[2025-01-23 06:08] LABS: IMMATURE GRAN ABSOLUTE AUTO 0.24 K/mm3 (0.00-0.10); IMMATURE GRAN PERCENT AUTO 2 % (0-1); LYMPHOCYTES ABSOLUTE AUTO 2.62 K/mm3 (0.84-5.20); LYMPHOCYTES PERCENT AUTO 24 % (21-46); MONOCYTES ABSOLUTE AUTO 1.08 K/mm3 (0.16-1.47); MONOCYTES PERCENT AUTO 10 % (4-13); NEUTROPHILS ABSOLUTE AUTO 6.84 K/mm3 (1.96-9.15); NEUTROPHILS PERCENT AUTO 63 % (41-73)
--- NOTE | 2025-01-23 06:23 | NUR ---
SHIFT SUMMARY; PT A/OX4, PLEASANT, AND COOPERATIVE WITH CARE. BOWEL TONES APPEAR NORMATIVE UPON AUSCULTATION. PATIENT REPORTS SHARP PAIN IN ABD CURRENTLY CONTROLLED WITH PAIN MEDICATION PER EMAR. PPN AND ZOSYN CONTINUE TO INFUSE INDICATED PER EMAR. Q6H CBG CHECK CONTINUES TO BE ELEVATED > 180. CALL LIGHT WITHIN REACH AND BED IN LOW POSITION.
[2025-01-23 06:31] LABS: Alanine Aminotransfer (ALT/SGP 16.0 U/L (12-78); Albumin, Blood 1.9 g/dL (3.4-5.0); Albumin/Globulin Ratio 0.7 (0.8-1.8); Anion Gap 8.0 mmol/L (3-11); Aspartate Aminotrans (AST/SGOT 11.0 U/L (12-37); Bilirubin, Total 0.2 mg/dL (0.1-1.0); Blood Urea Nitrogen 9.0 mg/dL (8-24); CO2, Blood 30.0 mmol/L (21-32); Calcium, Blood 7.8 mg/dL (8.5-10.1); Chloride, Blood 100.0 mmol/L (98-108); Creatinine, Blood 0.38 mg/dL (0.40-1.00); Globulin, Blood 2.9 g/dL (2.2-4.0); Glucose, Blood 222.0 mg/dL (70-99); Magnesium, Blood 2.1 mg/dL (1.6-2.4); Phosphorus, Blood 2.1 mg/dL (2.5-4.9); Potassium, Blood 3.8 mmol/L (3.5-5.5); Sodium, Blood 134.0 mmol/L (136-145); Total Protein, Blood 4.8 g/dL (6.4-8.2)
[2025-01-23] MEDS ORDERED: NS 1,000 ML IV SCH (07:10)
[2025-01-23] MEDS ORDERED: Sodium Phosphate 15 MM in Dextrose 5% 250 ML IV STA (07:48)
[2025-01-23] MEDS ORDERED: Piperacillin/Tazobactam Sod 3.375 GM in NS 100 ML IV SCH (08:30)
[2025-01-23 08:50] VITALS: BP 150/72
[2025-01-23] MEDS ORDERED: Enoxaparin 40 MG/0.4 ML SYR SC SCH (10:00)
[2025-01-23] MEDS ORDERED: Insulin Human Lispro 100 Units/ML 3ML Syringe SC SCH ×2 (11:30→18:00)
[2025-01-23] MEDS ORDERED: TPN Consult Notification XX ONE (13:10)
[2025-01-23 16:41] VITALS: BP 146/80
[2025-01-23] MEDS ORDERED: FentaNYL Citrate 50 MCG/ML 2 ML Injection IV PRN (17:00)
[2025-01-23] MEDS ORDERED: Parenteral Electolytes 40 ML,Potassium Phosphate Dibasic 30 MM,Multivitamins 10 ML,ZINC... IV SCH (17:00)
--- NOTE | 2025-01-23 18:19 | NUR ---
END OF SHIFT NOTE PATIENT HAD SOME PAIN TODAY, MEDICATIONS ADJUSTED AND GIVEN Q6, IV PAIN MEDS FOR BREAK THROUGH PAIN. MINIMAL INTAKE TODAY, BUT PATIENTS STATES BETTER THAN YESTERDAY. FAMILY IN TO VISIT TODAY. PATIENT AMBULATED IND TO BATHROOM AND AROUND ROOM WITHOUT ISSUE. DR INGRAM CONSULTED ABOUT SURGERY PLAN FOR WEDNESDAY, PATIENT UNDERSTOOD AND AGREEABLE. NO BM REPORTED TODAY.
[2025-01-23 19:33] VITALS: BP 145/88
--- NOTE | 2025-01-24 03:57 | NUR ---
SHIFT SUMMARY ADMITTED FOR LARGE BOWEL OBSTRUCTION. FULL CODE. PLAN IS FOR SURGERY ON 01/25. DR. INGRAM IS SURGICAL CONSULT. IV ANTIB RX ARE SCHEDULED. PPN AND IV FLUID INFUSING. ON RA. A&O X4, INDEPENDENT. PAIN MEDICATION GIVEN THIS SHIFT. C. DIFF R/O WAS NEGATIVE. NO NEW CONCERNS THIS SHIFT.
[2025-01-24 05:05] VITALS: BP 152/81
[2025-01-24 07:19] LABS: BASOPHILS ABSOLUTE AUTO 0.04 K/mm3 (0.00-0.23); BASOPHILS PERCENT AUTO 0 % (0-2); EOSINOPHILS ABSOLUTE AUTO 0.02 K/mm3 (0.00-0.68); EOSINOPHILS PERCENT AUTO 0 % (0-6); Hematocrit 34.3 % (33.0-51.0); Hemoglobin 11.9 g/dL (11.5-16.0); IMMATURE GRAN ABSOLUTE AUTO 0.32 K/mm3 (0.00-0.10); IMMATURE GRAN PERCENT AUTO 3 % (0-1); LYMPHOCYTES ABSOLUTE AUTO 3.37 K/mm3 (0.84-5.20); LYMPHOCYTES PERCENT AUTO 31 % (21-46); MONOCYTES ABSOLUTE AUTO 1.53 K/mm3 (0.16-1.47); MONOCYTES PERCENT AUTO 14 % (4-13); Mean Corpuscular HGB Conc 34.7 g/dL (31.5-36.5); Mean Corpuscular Volume 91 fL (80-100); NEUTROPHILS ABSOLUTE AUTO 5.77 K/mm3 (1.96-9.15); NEUTROPHILS PERCENT AUTO 52 % (41-73); NRBC ABSOLUTE 0.00 K/mm3 (0.00-0.02); NRBC Auto 0.0 /100 WBC (0.0-0.2); Platelet Count 190 K/mm3 (150-400); RDW Coefficient Variation 14.0 % (11.7-14.2); RDW Standard Deviation 46.5 fL (35.1-46.3)
[2025-01-24 07:45] VITALS: BP 145/76
[2025-01-24 08:43] LABS: Alanine Aminotransfer (ALT/SGP 30.0 U/L (12-78); Albumin, Blood 2.1 g/dL (3.4-5.0); Albumin/Globulin Ratio 0.6 (0.8-1.8); Anion Gap 8.0 mmol/L (3-11); Aspartate Aminotrans (AST/SGOT 26.0 U/L (12-37); Bilirubin, Total 0.3 mg/dL (0.1-1.0); Blood Urea Nitrogen 11.0 mg/dL (8-24); CO2, Blood 32.0 mmol/L (21-32); Calcium, Blood 8.5 mg/dL (8.5-10.1); Chloride, Blood 99.0 mmol/L (98-108); Creatinine, Blood 0.45 mg/dL (0.40-1.00); Globulin, Blood 3.3 g/dL (2.2-4.0); Glucose, Blood 140.0 mg/dL (70-99); Magnesium, Blood 1.9 mg/dL (1.6-2.4); Phosphorus, Blood 2.7 mg/dL (2.5-4.9); Potassium, Blood 3.8 mmol/L (3.5-5.5); Sodium, Blood 135.0 mmol/L (136-145); Total Protein, Blood 5.4 g/dL (6.4-8.2)
[2025-01-24] MEDS ORDERED: TPN Consult Notification XX ONE (10:55)
[2025-01-24 15:49] VITALS: BP 150/70
[2025-01-24 15:55] VITALS: BP 150/70
--- NOTE | 2025-01-24 16:26 | NUR ---
PATIENT A/OX4, UP INDEPENDENTLY IN ROOM. VSS, ON RA. NPO AT MIDNIGHT TONIGHT FOR SURGERY TOMORROW WITH DR NIGRAM. PPN INFUSING, VERY LITTLE PO INTAKE. PAIN MANAGED WITH TRAMADOL THIS SHIFT. FAMILY AT BEDSIDE THROUGHOUT THE DAY, VERY SUPPORTIVE. PLEASANT AND COOPERATIVE WITH CARE, ABLE TO MAKE NEEDS KNOWN.
--- NOTE | 2025-01-24 16:37 | NUR ---
ATTEMPTED VISIT THIS AFTERNOON. PT UNAVALIABLE. DISCUSSED CASE WITH BSRN
[2025-01-24] MEDS ORDERED: Parenteral Electolytes 40 ML,POTASSIUM PHOS,M-BASIC-D-BASIC 30 MMOL,Multivitamins 10 ML... IV SCH (17:00)
[2025-01-24 20:28] VITALS: BP 158/73
[2025-01-25] VITALS (52 sets, daily range): BP systolic 69–147; BP diastolic 51–79
--- NOTE | 2025-01-25 03:54 | NUR ---
SHIFT SUMMARY ADMITTED FOR LARGE BOWEL OBSTRUCTION. FULL CODE. CONTACT PRECAUTIONS FOR [facility]. PT HAS BEEN NPO SINCE MIDNIGHT FOR SURGICAL PROCEDURE TODAY. PPN INFUSING ORDERED. Q6 CBG'S - LOW SS. DR. INGRAM IS SURGICAL CONSULT. A&O X4, INDEPENDENT IN ROOM. ON RA. IV FLUIDS INFUSING. ANTIB RX ARE SCHEDULED.
[2025-01-25 05:31] LABS: BASOPHILS ABSOLUTE AUTO 0.03 K/mm3 (0.00-0.23); BASOPHILS PERCENT AUTO 0 % (0-2); EOSINOPHILS ABSOLUTE AUTO 0.03 K/mm3 (0.00-0.68); EOSINOPHILS PERCENT AUTO 0 % (0-6); Hematocrit 36.4 % (33.0-51.0); Hemoglobin 12.7 g/dL (11.5-16.0); IMMATURE GRAN ABSOLUTE AUTO 0.32 K/mm3 (0.00-0.10); IMMATURE GRAN PERCENT AUTO 2 % (0-1); LYMPHOCYTES ABSOLUTE AUTO 4.21 K/mm3 (0.84-5.20); LYMPHOCYTES PERCENT AUTO 31 % (21-46); MONOCYTES ABSOLUTE AUTO 1.39 K/mm3 (0.16-1.47); MONOCYTES PERCENT AUTO 10 % (4-13); Mean Corpuscular HGB Conc 34.9 g/dL (31.5-36.5); Mean Corpuscular Volume 90 fL (80-100); NEUTROPHILS ABSOLUTE AUTO 7.78 K/mm3 (1.96-9.15); NEUTROPHILS PERCENT AUTO 57 % (41-73); NRBC ABSOLUTE 0.00 K/mm3 (0.00-0.02); NRBC Auto 0.0 /100 WBC (0.0-0.2); Platelet Count 193 K/mm3 (150-400); RDW Coefficient Variation 13.9 % (11.7-14.2); RDW Standard Deviation 45.6 fL (35.1-46.3)
[2025-01-25 06:06] LABS: Alanine Aminotransfer (ALT/SGP 31.0 U/L (12-78); Albumin, Blood 2.4 g/dL (3.4-5.0); Albumin/Globulin Ratio 0.8 (0.8-1.8); Anion Gap 8.0 mmol/L (3-11); Aspartate Aminotrans (AST/SGOT 17.0 U/L (12-37); Bilirubin, Total 0.2 mg/dL (0.1-1.0); Blood Urea Nitrogen 14.0 mg/dL (8-24); CO2, Blood 30.0 mmol/L (21-32); Calcium, Blood 8.2 mg/dL (8.5-10.1); Chloride, Blood 99.0 mmol/L (98-108); Creatinine, Blood 0.41 mg/dL (0.40-1.00); Globulin, Blood 3.2 g/dL (2.2-4.0); Glucose, Blood 118.0 mg/dL (70-99); Magnesium, Blood 1.9 mg/dL (1.6-2.4); Phosphorus, Blood 2.9 mg/dL (2.5-4.9); Potassium, Blood 3.7 mmol/L (3.5-5.5); Sodium, Blood 133.0 mmol/L (136-145); Total Protein, Blood 5.6 g/dL (6.4-8.2)
[2025-01-25] MEDS ORDERED: Heparin Sodium 5000 Units/ML 1ML MDV IV SCH (09:55)
[2025-01-25] MEDS ORDERED: FentaNYL Citrate 50 MCG/ML 2 ML Injection ONE (09:58)
[2025-01-25] MEDS ORDERED: Ampicillin Sod/Sulbactam Sod 3 GM in NS 100 ML IV ONE (10:00)
[2025-01-25] MEDS ORDERED: Heparin Sodium,Porcine 5,000 UNIT/0.5 ML SDV SC ONE (10:05)
--- NOTE | 2025-01-25 10:31 | NUR ---
9237 History, Chart, Medications and Allergies reviewed before start of procedure.Pre-Op teaching done. Pt verbalizes understanding.FAMILY AT BEDSIDE
[2025-01-25] MEDS ORDERED: FentaNYL Citrate 50 MCG/ML 2 ML Injection IV PRN ×2 (11:50)
[2025-01-25] MEDS ORDERED: HYDROmorphone HCl/Pf 1MG SYR IV PRN ×2 (11:50)
[2025-01-25] MEDS ORDERED: Ondansetron HCl 2 MG / ML 2ML Vial IV PRN (11:55)
[2025-01-25] MEDS ORDERED: ePHEDrine Sulfate 50 MG/ML 1ML Injection IV PRN (11:55)
[2025-01-25] MEDS ORDERED: Albuterol 2.5 MG/3 ML VIAL INH PRN (11:55)
[2025-01-25] MEDS ORDERED: Rocuronium Bromide 10 MG/ML 5ML Injection IV ONE (11:56)
[2025-01-25] MEDS ORDERED: Ondansetron HCl 2 MG / ML 2ML Vial ONE ×2 (12:26→13:21)
[2025-01-25] MEDS ORDERED: Dexamethasone Sod Phos 10 MG/ML 1ML VIAL ONE (12:26)
--- NOTE | 2025-01-25 12:28 | NUR ---
TRANSFER NOTE REPORT CALLED AND GIVEN TO HILARIO GARCIA ON SURGICAL FLOOR. PT GOING TO ROOM 211 FROM ROOM 310. FAMILY NOTIFIED OF ROOM CHANGE. BELONGINGS GATHERED, MEDS FROM DRAWER GATHERED AND TAKEN DOWN TO NEW ROOM. PPN STILL HAD HALF A BAG, TAKEN DOWN TO NEW ROOM.
[2025-01-25] MEDS ORDERED: Bupivacaine 0.5% HCl 5 MG/ML 30MLVIAL ONE (12:29)
[2025-01-25] MEDS ORDERED: Ketorolac Tromethamine 30mg Vial ONE (12:29)
[2025-01-25] MEDS ORDERED: Sugammadex Sodium 200 MG/2ML SDV (100 MG/ML) ONE (12:30)
[2025-01-25] MEDS ORDERED: Metoclopramide HCl 5MG / ML 2ML Vial IV ONE (13:35)
[2025-01-25] MEDS ORDERED: Metoclopramide HCl 5MG / ML 2ML Vial ONE (13:39)
[2025-01-25] MEDS ORDERED: ePHEDrine Sulfate 50 MG/ML 1ML Injection ONE (13:46)
[2025-01-25] MEDS ORDERED: Albumin (Human) 12.5gm/250ml 250 ML IV ONE (14:00)
--- NOTE | 2025-01-25 14:45 | NUR ---
TRANSFER NOTE AFTER RECEIVING REPORT FROM DECK BUILDER, PATIENT TRANSFERRED TO UNIT AT APPROX 1430. PATIENT LETHARGIC - EASILY AROUSABLE W/ VERBAL STIMULI BEFORE FALLING BACK TO SLEEP. S/P EXP LAP COLECTOMY W/ COLOSTOMY. BP SOFT - SBP 80s. MAP >65. RCVD EPHEDRINE AND ALBUMIN IN PACU PRIOR TO TRANSFER. IVF INFUSING PER EMAR. ON 2L VIA NC - SATs >90%. LUNG SOUNDS DIM. RR EVEN, UNLABORED. HINOJOSA CATHETER IN PLACE. MIDLINE INCISION W/ VIVIANA DRESSING - SCANT SS DRAINAGE NOTED TO TOP END OF DRESSING. COLOSTOMY RQ W/ MINIMAL LOOSE BROWN OUTPUT. TPN INFUSING PER EMAR. DENIES N/V - FULL LIQUID DIET. WATER AND JELLO WITHIN REACH. FAMILY AT BEDSIDE. CALL LIGHT IN REACH.
--- NOTE | 2025-01-25 15:25 | NUR ---
POST OP HYPOTENSION SBP SUSTAINING 70s-80s W/ MAP 66-68. IVF INFUSING PER EMAR. PATIENT REMAINS LETHARGIC - AROUSABLE W/ STIMULI BEFORE FALLING BACK TO SLEEP. FAMILY AT BEDSIDE. MD PLASCENCIA NOTIFIED - ORDER FOR 1L LR BOLUS AND TO UPDATE MD POST INFUSION.
--- NOTE | 2025-01-25 16:35 | NUR ---
UPDATE MD PLASCENCIA AT BEDSIDE UPON COMPLETION OF ORDERED 1L BOLUS OF LR. BP IMPROVED - SBP 90s. MAP >65. PATIENT MORE ALERT, COMMUNICATING MORE W/ STAFF AND SPOUSE AT BEDSIDE. RCVD VERBAL TO RESUME PREVIOUSLY ORDERED IVF AND TO CONTACT MD W/ ANY CHANGES.
--- NOTE | 2025-01-25 17:36 | NUR ---
UPDATE PATIENTs BP TRENDING BACK DOWN. SBP 70s-80s. MAP <65. IVF INFUSING PER EMAR. PATIENT LETHARGIC - EASILY AROUSABLE W/ STIMULI. MD PLASCENCIA CONTACTED W/ UPDATE. ORDER RCVD FOR 5MG PO MIDODRINE AND 500ML BOLUS OF NS.
[2025-01-25] MEDS ORDERED: NS 500 ML IV ONE (17:40)
--- NOTE | 2025-01-25 17:58 | NUR ---
UPDATE PATIENTs SBP SUSTAINING 70s-80s. MAP <65. ASYMPTOMATIC. 500ML BOLUS INFUSING AND 5MG PO MIDODRINE ADMINISTERED PER EMAR. MD PLASCENCIA UPDATED - ORDER RCVD FOR ALBUMIN AND STAT HGB.
--- NOTE | 2025-01-25 18:12 | NUR ---
SHIFT SUMMARY SEE PREVIOUS NOTES. S/P EXP LAP TOTAL COLECTOMY W/ COLOSTOMY. PATIENT REMAINS LETHARGIC - EASILY AROUSABLE W/ STIMULI. COMMUNICATING NEEDS EFFECTIVELY. SPEECH SOFT. LAST BP 88/61 MAP >65. ASYMPTOMATIC W/ POSITION CHANGES. 500ML BOLUS COMPLETED. IVF INFUSING PER EMAR. AWAITING ALBUMIN FROM PHARMACY. TITRATED TO ROOM AIR - SATs >90%. RR EVEN, UNLABORED. LUNG SOUNDS DIM. MIDLINE INCISION W/ VIVIANA DRESSING - NO CHANGES TO SS DRAINAGE SITE FROM PREVIOUS ASSESSMENT. OSTOMY W/ LIQUID BROWN/RED STOOL. STOMA PINK, BEEFY. AWAITING RESULTS FROM HBG LAB DRAW. DENIES N/V. TPN INFUSING PER EMAR. HINOJOSA CATHETER IN PLACE W/ MINIMAL YELLOW URINARY OUTPUT. SPOUSE AT BEDSIDE. CALL LIGHT IN REACH.
--- NOTE | 2025-01-25 18:27 | NUR ---
UPDATE SBP 90s, MAP >65. IV ALBUMIN INFUSING PER EMAR. HGB RESULTS BACK AT 8.4. MD PLASCENCIA UPDATED - RCVD ORDER FOR REPEAT HGB DRAW AT 01/26/25 0000.
--- NOTE | 2025-01-25 20:00 | NUR ---
TRANSFER PT TO TRANSFER TO ICU THIS EVENING D/T HYPOTENSION. PT HAS BEEN HYPOTENSIVE POST OP, BLOOD PRESSURE HAS IMPROVED SOME, BUT STILL REMAINS SOFT DESPITE FLUIDS, ALBUMIN AND MIDODRINE. DAYSHIFT RN, AND DAY CHARGE HAD BEEN IN CONTACT WITH DAY PROVIDER REGARDING HYPOTENSION. SEE PRIOR NURSES NOTES. HGB HAS DROPPED FROM 12.7 TO 8.4. PT HAS HAD MIMIMAL URINE OUTPUT DESPITE RECEIVING LARGE AMOUNTS OF FLUIDS. DR. MORALES MADE AWARE OF HYPOTENSION POST OP. SHE ORDERED FOR TRANSFER TO ICU AND 1 UNIT OF PRBC'S.
--- NOTE | 2025-01-25 20:38 | NUR ---
TRANSFER REPORT GIVEN TO COMMERCIAL BAKING TEACHER TO ASSUME CARE OF PT. PT TO BE TRANSFERRED TO ICU BY PHARMACEUTICAL SALESHILARIO BOLTON.
--- NOTE | 2025-01-25 20:45 | NUR ---
PT TRANSFERRED TO ICU 10 AT [address]
--- NOTE | 2025-01-25 21:23 | NUR ---
TRANSFER TO ICU PT WAS TRANSFERRED TO ICU 10 VIA BED WITH RN AND TRAFFIC ADMINISTRATOR AT BEDSIDE. PT LETHARGIC BUT EASILY AROUSED AND ABLE TO COMMUNICATE HER NEEDS. NEW 18 G IV STARTED IN LAC WITH LEVOPHED STARTED AT 1MCG/MIN. PT HAS MIDLINE ABD INCISON WITH VIVIANA DRAIN ATTACHED AND RUNNING. COLCOSTOMY RUQ WITH DARK LIQUID BROWN OUTPUT. DR. MORALES AT BEDSIDE TO EVALUATE PT.
[2025-01-25] MEDS ORDERED: NS 500 ML IV SCH (21:40)
--- NOTE | 2025-01-25 23:25 | NUR ---
TRANSFER OF CARE I AGREE WITH MY CHARGE NURSE, ANGELO, TRANSFER N0TE ABOUT THIS PT. I UNIT PRBC'S STARTED, INFUSING AT 200ML/HR, AND LEVOPHED AT 1 MCG/MIN. PT SAYS PAIN IS 2/10 RIGHT ABDOMEN; SHE RESPONDED WELL TO PAIN MEDS. OUTPUT OF COLOSTOMY IS DARK BROWN LIQUID/SOLID MIX. PT'S DAUGHTER IS IN ROOM WITH PT AND WILL STAY THE EVENING.
[2025-01-26] VITALS (49 sets, daily range): BP systolic 89–126; BP diastolic 45–92
[2025-01-26 04:30] LABS: BASOPHILS ABSOLUTE AUTO 0.08 K/mm3 (0.00-0.23); BASOPHILS PERCENT AUTO 1 % (0-2); EOSINOPHILS ABSOLUTE AUTO 0.06 K/mm3 (0.00-0.68); EOSINOPHILS PERCENT AUTO 0 % (0-6); Hematocrit 27.2 % (33.0-51.0); Hemoglobin 9.5 g/dL (11.5-16.0); IMMATURE GRAN ABSOLUTE AUTO 0.72 K/mm3 (0.00-0.10); IMMATURE GRAN PERCENT AUTO 4 % (0-1); LYMPHOCYTES ABSOLUTE AUTO 3.66 K/mm3 (0.84-5.20); LYMPHOCYTES PERCENT AUTO 22 % (21-46); MONOCYTES ABSOLUTE AUTO 1.30 K/mm3 (0.16-1.47); MONOCYTES PERCENT AUTO 8 % (4-13); Mean Corpuscular HGB Conc 34.9 g/dL (31.5-36.5); Mean Corpuscular Volume 92 fL (80-100); NEUTROPHILS ABSOLUTE AUTO 10.76 K/mm3 (1.96-9.15); NEUTROPHILS PERCENT AUTO 65 % (41-73); NRBC ABSOLUTE 0.00 K/mm3 (0.00-0.02); NRBC Auto 0.0 /100 WBC (0.0-0.2); Platelet Count 163 K/mm3 (150-400); RDW Coefficient Variation 13.8 % (11.7-14.2); RDW Standard Deviation 46.1 fL (35.1-46.3)
[2025-01-26 05:06] LABS: Alanine Aminotransfer (ALT/SGP 17.0 U/L (12-78); Albumin, Blood 2.0 g/dL (3.4-5.0); Albumin/Globulin Ratio 1.2 (0.8-1.8); Anion Gap 8.0 mmol/L (3-11); Aspartate Aminotrans (AST/SGOT 16.0 U/L (12-37); Bilirubin, Total 0.5 mg/dL (0.1-1.0); Blood Urea Nitrogen 26.0 mg/dL (8-24); CO2, Blood 28.0 mmol/L (21-32); Calcium, Blood 6.8 mg/dL (8.5-10.1); Chloride, Blood 101.0 mmol/L (98-108); Creatinine, Blood 0.51 mg/dL (0.40-1.00); Globulin, Blood 1.7 g/dL (2.2-4.0); Glucose, Blood 189.0 mg/dL (70-99); Magnesium, Blood 1.6 mg/dL (1.6-2.4); Phosphorus, Blood 3.7 mg/dL (2.5-4.9); Potassium, Blood 4.6 mmol/L (3.5-5.5); Sodium, Blood 132.0 mmol/L (136-145); Total Protein, Blood 3.7 g/dL (6.4-8.2)
--- NOTE | 2025-01-26 07:24 | NUR ---
SHIFT SUMMARY PT LYING IN BED SLEEPING, AWAKES TO VOICE AND IS ALERT AND ORIENTED TO ALL. PT C/O PAIN IN RIGHT ABDOMEN 2/10 FOLLOWING THIRD DOSE OF FENTANYL; TRAMADOL X 2 WAS ALSO UTILIZED FOR PAIN CONTROL. PT AFEBRILE ALL SHIFT, TEMP HOVERED AROUND 97.0 F. PT MAEW. PT STAYED IN SINUS RHYTHM WITH RATE OF 58-68 AND STABLE BP, MAP > 65, FOLLOWING BRIEF LEVOPHED DRIP FOR FIRST 4 HOURS OF TRANSFER TO ICU. PT DENIED CHEST PAIN/PRESSURE OR SOB DURING SHIFT. PT ON RA WITH SATURATIONS > 95%. LUNGS SOUNDS INTACT AND BREATHING WITHOUT EXTRA EFFORT. COLOSTOMY IN PLACE MIDLINE WITH 100 DARK BROWN LIQUID OUTPUT. MIDLINE INCISION IS COVERED WITH ABD PAD AND VIVIANA DRAIN IS IN PLACE. URINE OUTPUT THROUGH HINOJOSA WAS 450ML OF ZULMA URINE WITH HINT OF RED. PPN INFUSING AT 105ML/HR. BEDSIDE SHIFT REPORT GIVEN TO ONCOMING RN.
[2025-01-26] MEDS ORDERED: Enoxaparin 40 MG/0.4 ML SYR SC SCH (13:00)
--- NOTE | 2025-01-26 18:14 | NUR ---
SHIFT SUMMARY: PT IS A&O X 4, ABLE TO FOLLOW COMMANDS AND COMMUNICATE NEEDS. PT C/O PAIN TO RUQ, TENDER/DULL, PRN FENTANYL AND OXYCODONE GIVEN PER JUL WITH GOOD EFFECT. PT REMAINS ON ROOM AIR WITH SPO2 ABOVE 92% NO RESP DISTRESS NOTED. PT IN SB TO SR, HR BETWEEN 55-60'S. BLOOD PRESSURE STABLE, MAP'S ABOVE 65. PT HAS POOR APPETITE, PPN RUNNING PER JUL. PT DENIES NAUSEA. STOMA PINK AND MOIST, DARK BROWN LIQUID DRAINAGE NOTED TO OSTOMY. MIDLINE INCISION INTACT, VIVIANA WOUND VAC IN PLACE. HINOJOSA CATH REMOVED, PT UP TO BS WITH MINIMAL ASSISTANCE. PT REPOSITIONED Q2HRS, BUTTOCKS RED/BLACHABLE, MEPILEX DRESSING IN PLACE. PLAN OF CARE ONGOING.
--- NOTE | 2025-01-26 23:01 | NUR ---
PT WAS C/O INCREASED ABD PAIN. ABD WAS FIRM AND TENDER, FELT THE SAME THE FIRST ASSESSMENT. VIVIANA WNL, NO INCREASED OUTPUT FROM THE OSTOMY, NO NEW DRAINAGE ON THE MIDLINE DRESSING. PW HAD BEEN PLACED PER PT REQUEST, SHE HAD 330 CLEAR YELLOW OUTPUT AT THAT TIME, ASKED IF SHE FELT LIKE SHE WAS EMPTYING HER BLADDER COMPLETELY AND SHE SAID NO. BLADDER SCANNED HER FOR 330. TOLD HER TO TELL ME IF THINGS GOT WORSE. REPOSITIONED FOR COMFORT AND CALL LIGHT WITHIN REACH.
[2025-01-27] VITALS (7 sets, daily range): BP systolic 115–145; BP diastolic 56–74
[2025-01-27 04:13] LABS: BASOPHILS ABSOLUTE AUTO 0.05 K/mm3 (0.00-0.23); BASOPHILS PERCENT AUTO 0 % (0-2); EOSINOPHILS ABSOLUTE AUTO 0.03 K/mm3 (0.00-0.68); EOSINOPHILS PERCENT AUTO 0 % (0-6); Hematocrit 24.7 % (33.0-51.0); Hemoglobin 8.5 g/dL (11.5-16.0); IMMATURE GRAN ABSOLUTE AUTO 0.41 K/mm3 (0.00-0.10); IMMATURE GRAN PERCENT AUTO 3 % (0-1); LYMPHOCYTES ABSOLUTE AUTO 3.22 K/mm3 (0.84-5.20); LYMPHOCYTES PERCENT AUTO 21 % (21-46); MONOCYTES ABSOLUTE AUTO 1.34 K/mm3 (0.16-1.47); MONOCYTES PERCENT AUTO 9 % (4-13); Mean Corpuscular HGB Conc 34.4 g/dL (31.5-36.5); Mean Corpuscular Volume 93 fL (80-100); NEUTROPHILS ABSOLUTE AUTO 10.42 K/mm3 (1.96-9.15); NEUTROPHILS PERCENT AUTO 67 % (41-73); NRBC ABSOLUTE 0.00 K/mm3 (0.00-0.02); NRBC Auto 0.0 /100 WBC (0.0-0.2); Platelet Count 174 K/mm3 (150-400); RDW Coefficient Variation 14.5 % (11.7-14.2); RDW Standard Deviation 48.6 fL (35.1-46.3)
[2025-01-27 05:07] LABS: Alanine Aminotransfer (ALT/SGP 28.0 U/L (12-78); Albumin, Blood 1.9 g/dL (3.4-5.0); Albumin/Globulin Ratio 0.8 (0.8-1.8); Anion Gap 7.0 mmol/L (3-11); Aspartate Aminotrans (AST/SGOT 28.0 U/L (12-37); Bilirubin, Total 0.3 mg/dL (0.1-1.0); Blood Urea Nitrogen 20.0 mg/dL (8-24); CO2, Blood 28.0 mmol/L (21-32); Calcium, Blood 7.6 mg/dL (8.5-10.1); Chloride, Blood 101.0 mmol/L (98-108); Creatinine, Blood 0.48 mg/dL (0.40-1.00); Globulin, Blood 2.3 g/dL (2.2-4.0); Glucose, Blood 102.0 mg/dL (70-99); Magnesium, Blood 2.0 mg/dL (1.6-2.4); Phosphorus, Blood 3.0 mg/dL (2.5-4.9); Potassium, Blood 4.3 mmol/L (3.5-5.5); Sodium, Blood 132.0 mmol/L (136-145); Total Protein, Blood 4.2 g/dL (6.4-8.2)
--- NOTE | 2025-01-27 19:18 | NUR ---
SHIFT SUMMARY ALBERTINA IS ORIENTED X4, PLEASANT AND COOPERATIVE. BOWEL SWEAT IN RUQ COLOSTOMY, + GAS. PAIN CONTROLLED WITH ORAL OXY, TYLENOL AND SIMETHICONE. MIDLINE INCISION WITH VIVIANA DRESSING WITH SMALL SS DRAINAGE, COLOSTOMY INTACT. SR/SA WITH PACS. NO EDEMA. POOR PO INTAKE. PPN RUNNING PER ORDERS.
--- NOTE | 2025-01-27 19:40 | NUR ---
ASSUMPTION OF CARE PT SITTING UP IN BED, AT BEDSIDE. AOX4, VSS AND WNL, RA, PAIN CONTINUES TO BE AN ISSUE AND IS THE REASON SHE IS RESISTANT TO CARE- EVEN GETTING BATHED. COOPERATIVE OTHERWISE, EAGER TO LEARN AND ASKS QUESTIONS. I TOLD SHE AND HER THAT SHE WOULD BE GETTING TRANSFERRED TO ROOM 226 TONIGHT.
[2025-01-27] MEDS ORDERED: FentaNYL Citrate 50 MCG/ML 2 ML Injection IV PRN (20:25)
--- NOTE | 2025-01-27 20:30 | NUR ---
PT WAS TRANSFERRED FROM ICU. PT ALERT AND ORIENTED PLEASANT.OSTOMY STOMA BEEFY PINK IN APPEARANCE,WITH RED FLUID IN OSTOMY BAG.PT DENIES NAUSEA. NO CP OR SOB,PUREWICK EFFECTIVE.
[2025-01-28] VITALS (7 sets, daily range): BP systolic 88–114; BP diastolic 49–60
[2025-01-28 04:37] LABS: BASOPHILS ABSOLUTE AUTO 0.04 K/mm3 (0.00-0.23); BASOPHILS PERCENT AUTO 0 % (0-2); EOSINOPHILS ABSOLUTE AUTO 0.05 K/mm3 (0.00-0.68); EOSINOPHILS PERCENT AUTO 0 % (0-6); Hematocrit 21.2 % (33.0-51.0); Hemoglobin 7.2 g/dL (11.5-16.0); IMMATURE GRAN ABSOLUTE AUTO 0.16 K/mm3 (0.00-0.10); IMMATURE GRAN PERCENT AUTO 1 % (0-1); LYMPHOCYTES ABSOLUTE AUTO 2.34 K/mm3 (0.84-5.20); LYMPHOCYTES PERCENT AUTO 19 % (21-46); MONOCYTES ABSOLUTE AUTO 1.04 K/mm3 (0.16-1.47); MONOCYTES PERCENT AUTO 9 % (4-13); Mean Corpuscular HGB Conc 34.0 g/dL (31.5-36.5); Mean Corpuscular Volume 94 fL (80-100); NEUTROPHILS ABSOLUTE AUTO 8.66 K/mm3 (1.96-9.15); NEUTROPHILS PERCENT AUTO 71 % (41-73); NRBC ABSOLUTE 0.00 K/mm3 (0.00-0.02); NRBC Auto 0.0 /100 WBC (0.0-0.2); Platelet Count 182 K/mm3 (150-400); RDW Coefficient Variation 14.6 % (11.7-14.2); RDW Standard Deviation 49.1 fL (35.1-46.3)
[2025-01-28 05:15] LABS: Alanine Aminotransfer (ALT/SGP 45 U/L (12-78); Albumin, Blood 1.8 g/dL (3.4-5.0); Albumin/Globulin Ratio 0.7 (0.8-1.8); Anion Gap 4 mmol/L (3-11); Aspartate Aminotrans (AST/SGOT 41 U/L (12-37); Bilirubin, Total 0.4 mg/dL (0.1-1.0); Blood Urea Nitrogen 15 mg/dL (8-24); CO2, Blood 30 mmol/L (21-32); Calcium, Blood 8.1 mg/dL (8.5-10.1); Chloride, Blood 103 mmol/L (98-108); Creatinine, Blood 0.42 mg/dL (0.40-1.00); Globulin, Blood 2.6 g/dL (2.2-4.0); Glucose, Blood 110 mg/dL (70-99); Potassium, Blood 4.0 mmol/L (3.5-5.5); Sodium, Blood 133 mmol/L (136-145); Total Protein, Blood 4.4 g/dL (6.4-8.2); Triglycerides 103 mg/dL (30-160)
--- NOTE | 2025-01-28 06:00 | NUR ---
SUMMARY SLEEPING IF UNDISTURBED MOST OF LATE AM SINCE PAIN MEDS.
--- NOTE | 2025-01-28 09:41 | NUR ---
DR ROSAS IN TO SEE PT.
--- NOTE | 2025-01-28 10:10 | NUR ---
THIS VISUAL COORDINATOR OFFERED TO GET PATIENT UP TO CHAIR AND BSC.PATIENT DECLINED.RN NOTIFIED.
--- NOTE | 2025-01-28 11:16 | NUR ---
OFFERED TO CHANGE OR CHECK PATIENTS ATTENDS.PATIENT DECLINED STATED" I REMMOVED THE PAD MYSELF."THIS PALLIATIVE CARE NURSE PRACTITIONER ENCOURAGED PATIENT TO CALL TO BE CHANGED IF PATIENT FEELS WET.
[2025-01-28 14:28] LABS: Hematocrit 21.3 % (33.0-51.0); Hemoglobin 7.3 g/dL (11.5-16.0)
--- NOTE | 2025-01-28 16:19 | NUR ---
CALLED DR CABRERA AND DISCUSSED PT'S HYPOTENSION ORDERS PENDING.
--- NOTE | 2025-01-28 17:29 | NUR ---
SUMMARY PT HAD LOW BPS FROM MIDDAY THROUGH EVENING VS. REPORTED TO DR CABRERA AND OBTAINED ORDERS AND ADMINISTERED MIDODRINE. PT NOT TACHY AND HAD GOOD URINARY OUTPUT. IV FLUIDS INFUSING PER ORDERS. SCANT OUTPUT FROM OSTOMY. DID NOT ATTEMPT TO GET PT OOB W/HYPOTENSION. CALL LIGHT IN REACH.
--- NOTE | 2025-01-28 18:00 | NUR ---
THIS SENIOR FINANCIAL ACCOUNTANT OFFERED CHAIR AT DINNER TIME.OFFERED FRESH DRINKS AND OTHER FOOD CHOICES.PATIENT DECLINED ALL. STATE "IM OK FOR NOW."
[2025-01-29] VITALS (9 sets, daily range): BP systolic 110–140; BP diastolic 44–80
[2025-01-29 05:30] LABS: BASOPHILS ABSOLUTE AUTO 0.03 K/mm3 (0.00-0.23); BASOPHILS PERCENT AUTO 0 % (0-2); EOSINOPHILS ABSOLUTE AUTO 0.01 K/mm3 (0.00-0.68); EOSINOPHILS PERCENT AUTO 0 % (0-6); Hematocrit 19.3 % (33.0-51.0); Hemoglobin 6.5 g/dL (11.5-16.0); IMMATURE GRAN ABSOLUTE AUTO 0.12 K/mm3 (0.00-0.10); IMMATURE GRAN PERCENT AUTO 1 % (0-1); LYMPHOCYTES ABSOLUTE AUTO 2.18 K/mm3 (0.84-5.20); LYMPHOCYTES PERCENT AUTO 22 % (21-46); MONOCYTES ABSOLUTE AUTO 0.86 K/mm3 (0.16-1.47); MONOCYTES PERCENT AUTO 9 % (4-13); Mean Corpuscular HGB Conc 33.7 g/dL (31.5-36.5); Mean Corpuscular Volume 96 fL (80-100); NEUTROPHILS ABSOLUTE AUTO 6.74 K/mm3 (1.96-9.15); NEUTROPHILS PERCENT AUTO 68 % (41-73); NRBC ABSOLUTE 0.00 K/mm3 (0.00-0.02); NRBC Auto 0.0 /100 WBC (0.0-0.2); Platelet Count 234 K/mm3 (150-400); RDW Coefficient Variation 15.0 % (11.7-14.2); RDW Standard Deviation 50.7 fL (35.1-46.3)
[2025-01-29 05:56] LABS: Alanine Aminotransfer (ALT/SGP 47.0 U/L (12-78); Albumin, Blood 1.7 g/dL (3.4-5.0); Albumin/Globulin Ratio 0.6 (0.8-1.8); Anion Gap 5.0 mmol/L (3-11); Aspartate Aminotrans (AST/SGOT 41.0 U/L (12-37); Bilirubin, Total 0.5 mg/dL (0.1-1.0); Blood Urea Nitrogen 16.0 mg/dL (8-24); CO2, Blood 31.0 mmol/L (21-32); Calcium, Blood 8.2 mg/dL (8.5-10.1); Chloride, Blood 100.0 mmol/L (98-108); Creatinine, Blood 0.5 mg/dL (0.40-1.00); Globulin, Blood 2.8 g/dL (2.2-4.0); Glucose, Blood 104.0 mg/dL (70-99); Potassium, Blood 4.1 mmol/L (3.5-5.5); Sodium, Blood 132.0 mmol/L (136-145); Total Protein, Blood 4.5 g/dL (6.4-8.2)
[2025-01-29 13:09] LABS: Hematocrit 26.0 % (33.0-51.0); Hemoglobin 9.0 g/dL (11.5-16.0)
--- NOTE | 2025-01-29 16:42 | NUR ---
SHIFT SUMMARY ADMITTED ON 01/17 FOR PANCOLITIS. A&O x4, VSS, HRR. LUNGS CLEAR. ABLE TO MAKE NEEDS KNOWN. BLOOD ADMINISTERED THIS AM, LAB REDRAW IN AFTERNOON SHOWED IMPROVED H&H. POD 3 COLECTOMY & OSTOMY PLACEMENT. MIDLINE ABD INCISION w/VIVIANA DRESSING IN PLACE, SCANT AMOUNT OF OLD DRAINIAGE, C/D/I. OSTOMY w/MODERATE AMOUNT DARK BROWN LIQUID OUTPUT & GAS. WORKED w/OT TODAY, ABLE TO AMBULATE TO BATHROOM FOR VOID. ENCOURAGE MOBILITY SEVERAL TIMES TODAY, PT DECLINED. EDUCATED ON IMPORTANCE OF MOBILITY w/PT & FAMILY. PAIN CONTROLLED WELL PER EMAR. ENCOURAGING INCREASED ORAL INTAKE THROUGHOUT DAY, PPN INFUSING PER EMAR. CURRENTLY RESTING IN BED w/FAMILY @ BEDSIDE. CALL LIGHT WITHIN REACH.
[2025-01-30 00:09] VITALS: BP 94/54
[2025-01-30 04:08] VITALS: BP 106/51
[2025-01-30 05:07] LABS: BASOPHILS ABSOLUTE AUTO 0.04 K/mm3 (0.00-0.23); BASOPHILS PERCENT AUTO 0 % (0-2); EOSINOPHILS ABSOLUTE AUTO 0.02 K/mm3 (0.00-0.68); EOSINOPHILS PERCENT AUTO 0 % (0-6); Hematocrit 22.0 % (33.0-51.0); Hemoglobin 7.6 g/dL (11.5-16.0); IMMATURE GRAN ABSOLUTE AUTO 0.08 K/mm3 (0.00-0.10); IMMATURE GRAN PERCENT AUTO 1 % (0-1); LYMPHOCYTES ABSOLUTE AUTO 1.28 K/mm3 (0.84-5.20); LYMPHOCYTES PERCENT AUTO 13 % (21-46); MONOCYTES ABSOLUTE AUTO 0.86 K/mm3 (0.16-1.47); MONOCYTES PERCENT AUTO 8 % (4-13); Mean Corpuscular HGB Conc 34.5 g/dL (31.5-36.5); Mean Corpuscular Volume 92 fL (80-100); NEUTROPHILS ABSOLUTE AUTO 7.92 K/mm3 (1.96-9.15); NEUTROPHILS PERCENT AUTO 78 % (41-73); NRBC ABSOLUTE 0.00 K/mm3 (0.00-0.02); NRBC Auto 0.0 /100 WBC (0.0-0.2); Platelet Count 251 K/mm3 (150-400); RDW Coefficient Variation 15.0 % (11.7-14.2); RDW Standard Deviation 49.6 fL (35.1-46.3)
[2025-01-30 05:31] LABS: Alanine Aminotransfer (ALT/SGP 39.0 U/L (12-78); Albumin, Blood 1.7 g/dL (3.4-5.0); Albumin/Globulin Ratio 0.6 (0.8-1.8); Anion Gap 7.0 mmol/L (3-11); Aspartate Aminotrans (AST/SGOT 30.0 U/L (12-37); Bilirubin, Total 0.6 mg/dL (0.1-1.0); Blood Urea Nitrogen 14.0 mg/dL (8-24); CO2, Blood 28.0 mmol/L (21-32); Calcium, Blood 8.0 mg/dL (8.5-10.1); Chloride, Blood 102.0 mmol/L (98-108); Creatinine, Blood 0.44 mg/dL (0.40-1.00); Globulin, Blood 2.8 g/dL (2.2-4.0); Glucose, Blood 114.0 mg/dL (70-99); Magnesium, Blood 1.8 mg/dL (1.6-2.4); Phosphorus, Blood 3.6 mg/dL (2.5-4.9); Potassium, Blood 3.8 mmol/L (3.5-5.5); Sodium, Blood 133.0 mmol/L (136-145); Total Protein, Blood 4.5 g/dL (6.4-8.2)
--- NOTE | 2025-01-30 06:08 | NUR ---
SHIFT SUMMARY PT S/P LAP APPY. PT PAINFUL POST OP, PAIN MEDICATIONS WERE ADJUSTED AND PT REPORTS RELIEF OF PAIN. PT HAS BEEN UP AND AMBULATING AND VOIDING. PATTI DRAIN WITH SS DISCHARGE, OUT HAS IS DECREASING. IV ANTIBIOTICS PER ORDERS. SURGICAL SITE WNL. POST OP VITALS STABLE. BED IN LOWEST POSITION, CALL LIGHT WITHIN REACH.
--- NOTE | 2025-01-30 06:14 | NUR ---
SHIFT SUMMARY PT HAS RESTED MOST OF THE NIGHT. UP AND AMBULATING USING FWW, STEADY ON FEET. OSTOMY PRODUCING BROWN LIQUID STOOL AND GAS. NO N/V, TOLERATING PO INTAKE. VITALS ARE STABLE. PLAN OF CARE REMAINS UNCHANGED. BED IN LOWEST POSITION, CALL LIGHT WITHIN REACH.
[2025-01-30 07:10] VITALS: BP 113/60
[2025-01-30] MEDS ORDERED: TPN Consult Notification XX ONE (10:15)
[2025-01-30 11:57] LABS: Hematocrit 22.2 % (33.0-51.0); Hemoglobin 7.8 g/dL (11.5-16.0)
[2025-01-30 13:50] VITALS: BP 99/50
[2025-01-30 16:00] VITALS: BP 99/56
[2025-01-30] MEDS ORDERED: Parenteral Electolytes 40 ML,Potassium Phosphate Dibasic 30 MM,Multivitamins 10 ML,ZINC... IV SCH (17:00)
--- NOTE | 2025-01-30 17:43 | NUR ---
SUMMARY NO ACUTE CHANGES T/O SHIFT. PT GETTING UP OOB TO VOID. AMBULATED IN ANN WITH LENNOX/PHYS THERAPY TODAY. IV FLUIDS AND PPN RATES DECREASED THIS SHIFT PER ORDERS. PT HAS LARGE PURPLE BRUISE ON L FLANK. BP CONTINUES TO RUN LOW,MIDODRINE GIVEN PER ORDERS. CALL LIGHT IN REACH.
[2025-01-30 18:10] LABS: Hematocrit 21.9 % (33.0-51.0); Hemoglobin 7.5 g/dL (11.5-16.0)
[2025-01-30 20:55] VITALS: BP 102/56
--- NOTE | 2025-01-30 21:58 | NUR ---
REPORT GIVEN TO MAME BOLTON RN TO ASSUME CARE OF PT. PT RESTING IN BED WATCHING TV WITHOUT ACUTE DISTRESS. DENIES NEEDS AT THIS TIME.
[2025-01-31 00:57] LABS: Hematocrit 21.6 % (33.0-51.0); Hemoglobin 7.4 g/dL (11.5-16.0)
[2025-01-31 04:39] VITALS: BP 104/52
--- NOTE | 2025-01-31 05:01 | NUR ---
SHIFT SUMMARY NO ACUTE CHANGES T/O NIGHT. IS POD 5 S/P COLECTOMY WITH OSTOMY. OSTOMY PRODUCING BROWN STOOL AND FLATUS. PPN AND IVF INFUSING PER ORDER. IS VOIDING. LISA MIN PO, DENIES N/V. IS A/OX4, ABLE TO MAKE NEEDS KNOWN. VSS. PT CURRENTLY RESTING IN BED, RESP EVEN/UNLABORED WITH CALL LIGHT IN REACH. WILL GIVE REPORT TO ONCOMING RN.
[2025-01-31 05:18] LABS: BASOPHILS ABSOLUTE AUTO 0.03 K/mm3 (0.00-0.23); BASOPHILS PERCENT AUTO 0 % (0-2); EOSINOPHILS ABSOLUTE AUTO 0.01 K/mm3 (0.00-0.68); EOSINOPHILS PERCENT AUTO 0 % (0-6); Hematocrit 22.3 % (33.0-51.0); Hemoglobin 7.7 g/dL (11.5-16.0); IMMATURE GRAN ABSOLUTE AUTO 0.05 K/mm3 (0.00-0.10); IMMATURE GRAN PERCENT AUTO 1 % (0-1); LYMPHOCYTES ABSOLUTE AUTO 1.78 K/mm3 (0.84-5.20); LYMPHOCYTES PERCENT AUTO 25 % (21-46); MONOCYTES ABSOLUTE AUTO 0.90 K/mm3 (0.16-1.47); MONOCYTES PERCENT AUTO 13 % (4-13); Mean Corpuscular HGB Conc 34.5 g/dL (31.5-36.5); Mean Corpuscular Volume 95 fL (80-100); NEUTROPHILS ABSOLUTE AUTO 4.42 K/mm3 (1.96-9.15); NEUTROPHILS PERCENT AUTO 62 % (41-73); NRBC ABSOLUTE 0.00 K/mm3 (0.00-0.02); NRBC Auto 0.0 /100 WBC (0.0-0.2); Platelet Count 282 K/mm3 (150-400); RDW Coefficient Variation 15.2 % (11.7-14.2); RDW Standard Deviation 51.2 fL (35.1-46.3)
[2025-01-31 05:40] LABS: Alanine Aminotransfer (ALT/SGP 49.0 U/L (12-78); Albumin, Blood 1.9 g/dL (3.4-5.0); Albumin/Globulin Ratio 0.6 (0.8-1.8); Anion Gap 7.0 mmol/L (3-11); Aspartate Aminotrans (AST/SGOT 39.0 U/L (12-37); Bilirubin, Total 0.8 mg/dL (0.1-1.0); Blood Urea Nitrogen 12.0 mg/dL (8-24); CO2, Blood 29.0 mmol/L (21-32); Calcium, Blood 8.4 mg/dL (8.5-10.1); Chloride, Blood 101.0 mmol/L (98-108); Creatinine, Blood 0.54 mg/dL (0.40-1.00); Globulin, Blood 3.1 g/dL (2.2-4.0); Glucose, Blood 100.0 mg/dL (70-99); Potassium, Blood 3.8 mmol/L (3.5-5.5); Sodium, Blood 133.0 mmol/L (136-145); Total Protein, Blood 5.0 g/dL (6.4-8.2)
[2025-01-31 07:52] VITALS: BP 100/63
--- NOTE | 2025-01-31 11:34 | NUR ---
DR INGRAM IN TO SEE PT.
[2025-01-31 12:55] VITALS: BP 100/56
[2025-01-31 14:17] VITALS: BP 117/70
--- NOTE | 2025-01-31 17:42 | NUR ---
SHIFT SUMMARY PT IS A/OX4. SBA IN ROOM. TOLERATING MINIMAL PO INTAKE, ENCOURAGED PO INTAKE. PT VOIDING WELL. OSTOMY IS PUTTING OUT BROWN LIQUID STOOL. VSS. PAIN MANAGED PER EMAR. NO ACUTE CHANGES T/O SHIFT.
[2025-01-31 18:30] LABS: Hematocrit 22.8 % (33.0-51.0); Hemoglobin 7.7 g/dL (11.5-16.0)
[2025-01-31 19:16] VITALS: BP 101/55
--- NOTE | 2025-02-01 04:03 | NUR ---
SHIFT SUMMARY POD 7 S/P COLECTOMY WITH OSTOMY. VIVIANA AND OSTOMY APPLIANCE CDI. VIVIANA COMPRESSED, NO NEW SHADOWING NOTED. OSTOMY PRODUCING LIQUID BROWN STOOL, APPLIANCE CDI. PPN AND IVF INFUSING PER ORDERS. PT LISA SMALL AMOUNT OF PO INTAKE. REPORTS POOR APPETITE AND DENIES N/V; ENCOURAGED TO INCREASE TOLERATED. PT IS SBA/IND IN ROOM AND A/OX4 WITH VSS. MEDICATED X 1 FOR PAIN. PLAN TO INCREASE PO INTAKE AND AMBULATION ABLE. WILL GIVE REPORT TO ONCOMING RN.
[2025-02-01 05:32] VITALS: BP 116/65
[2025-02-01 06:01] LABS: BASOPHILS ABSOLUTE AUTO 0.04 K/mm3 (0.00-0.23); BASOPHILS PERCENT AUTO 1 % (0-2); EOSINOPHILS ABSOLUTE AUTO 0.13 K/mm3 (0.00-0.68); EOSINOPHILS PERCENT AUTO 2 % (0-6); Hematocrit 23.9 % (33.0-51.0); Hemoglobin 7.9 g/dL (11.5-16.0); IMMATURE GRAN ABSOLUTE AUTO 0.04 K/mm3 (0.00-0.10); IMMATURE GRAN PERCENT AUTO 1 % (0-1); LYMPHOCYTES ABSOLUTE AUTO 1.67 K/mm3 (0.84-5.20); LYMPHOCYTES PERCENT AUTO 28 % (21-46); MONOCYTES ABSOLUTE AUTO 0.83 K/mm3 (0.16-1.47); MONOCYTES PERCENT AUTO 14 % (4-13); Mean Corpuscular HGB Conc 33.1 g/dL (31.5-36.5); Mean Corpuscular Volume 95 fL (80-100); NEUTROPHILS ABSOLUTE AUTO 3.32 K/mm3 (1.96-9.15); NEUTROPHILS PERCENT AUTO 55 % (41-73); NRBC ABSOLUTE 0.00 K/mm3 (0.00-0.02); NRBC Auto 0.0 /100 WBC (0.0-0.2); Platelet Count 331 K/mm3 (150-400); RDW Coefficient Variation 15.2 % (11.7-14.2); RDW Standard Deviation 52.8 fL (35.1-46.3)
[2025-02-01 06:35] LABS: Alanine Aminotransfer (ALT/SGP 43.0 U/L (12-78); Albumin, Blood 2.0 g/dL (3.4-5.0); Albumin/Globulin Ratio 0.6 (0.8-1.8); Anion Gap 7.0 mmol/L (3-11); Aspartate Aminotrans (AST/SGOT 29.0 U/L (12-37); Bilirubin, Total 0.8 mg/dL (0.1-1.0); Blood Urea Nitrogen 10.0 mg/dL (8-24); CO2, Blood 28.0 mmol/L (21-32); Calcium, Blood 8.6 mg/dL (8.5-10.1); Chloride, Blood 101.0 mmol/L (98-108); Creatinine, Blood 0.45 mg/dL (0.40-1.00); Globulin, Blood 3.5 g/dL (2.2-4.0); Glucose, Blood 96.0 mg/dL (70-99); Potassium, Blood 4.1 mmol/L (3.5-5.5); Sodium, Blood 132.0 mmol/L (136-145); Total Protein, Blood 5.5 g/dL (6.4-8.2)
[2025-02-01 07:49] VITALS: BP 102/60
[2025-02-01] MEDS ORDERED: Multivitamins-Minerals Liquid 15 ML Oral Syringe PO SCH (09:00)
[2025-02-01] MEDS ORDERED: CALCIUM CARBONATE 1250 MG/5 ML PO SCH (11:00)
[2025-02-01 14:35] VITALS: BP 118/63
--- NOTE | 2025-02-01 17:01 | NUR ---
MET WITH PT AND HER S/O. DISCUSSED SYMPTOMS. SHE REPORTED HER PAIN IS RELIEVED. SHE IS EATING AND DRINKING, BUT STILL NEEDING IV NUTRITION. SHE IS EXPERIENCING SOME NAUSEA. WE DISCUSSED CODE STATUS. SHE VERIFIED THAT SHE IS A FULL CODE. WE DISCUSSED WHAT FOLLOW UP MAY LOOK LIKE. SHE REPORTED THAT THE PROVIDER TOLD HER THERE WAS CANCER BUT THEY WERE ABLE TO GET IT ALL.
[2025-02-01 17:58] LABS: Hematocrit 23.4 % (33.0-51.0); Hemoglobin 7.8 g/dL (11.5-16.0)
--- NOTE | 2025-02-01 18:27 | NUR ---
SUMMARY: PT IS POD7 COLECTOMY. A/O, VSS. GOOD OUTPUT AND GAS FROM OSTOMY. PT IS INDEP AND ABLE TO WALK IN THE HALLS TODAY. VIVIANA WNL. PT CONTINUES WITH PPN, HAS REPORTED MINIMAL PAIN. NO ACUTE CONCERNS, PT USES CALL LIGHT.
[2025-02-01 19:18] VITALS: BP 119/64
[2025-02-02 03:26] VITALS: BP 106/59
--- NOTE | 2025-02-02 04:24 | NUR ---
SHIFT SUMMARY PT IS S/P COLECTOMY WITH OSTOMY. OSTOMY APPLIANCE CHANGED DUE TO LEAKING. VIVIANA TO MIDLINE INTACT AND COMPRESSED. PT IND IN ROOM. REPORTS VOIDING FREQUENTLY T/O NIGHT, NOW C/O OF DYSURIA. REPORTS DISCOMFORT TOLERABLE. IV NUTRITION INFUSING PER ORDERS. POOR PO INTAKE, DESPITE ENCOURAGEMENT. DENIES N.V. PAIN MANAGED PER EMAR. A/OX4, ABLE TO MAKE NEEDS KNOWN. HAS CALL LIGHT IN REACH. PLAN TO INCREASE PO AND OOB ABLE. WILL GIVE REPORT TO ONCOMING RN.
[2025-02-02 07:15] LABS: BASOPHILS ABSOLUTE AUTO 0.05 K/mm3 (0.00-0.23); BASOPHILS PERCENT AUTO 1 % (0-2); EOSINOPHILS ABSOLUTE AUTO 0.03 K/mm3 (0.00-0.68); EOSINOPHILS PERCENT AUTO 1 % (0-6); Hematocrit 23.3 % (33.0-51.0); Hemoglobin 7.8 g/dL (11.5-16.0); Mean Corpuscular HGB Conc 33.5 g/dL (31.5-36.5); Mean Corpuscular Volume 96 fL (80-100); NRBC ABSOLUTE 0.00 K/mm3 (0.00-0.02); NRBC Auto 0.0 /100 WBC (0.0-0.2); Platelet Count 350 K/mm3 (150-400); RDW Coefficient Variation 15.2 % (11.7-14.2); RDW Standard Deviation 52.2 fL (35.1-46.3)
[2025-02-02 07:16] LABS: IMMATURE GRAN ABSOLUTE AUTO 0.04 K/mm3 (0.00-0.10); IMMATURE GRAN PERCENT AUTO 1 % (0-1); LYMPHOCYTES ABSOLUTE AUTO 1.90 K/mm3 (0.84-5.20); LYMPHOCYTES PERCENT AUTO 36 % (21-46); MONOCYTES ABSOLUTE AUTO 0.75 K/mm3 (0.16-1.47); MONOCYTES PERCENT AUTO 14 % (4-13); NEUTROPHILS ABSOLUTE AUTO 2.56 K/mm3 (1.96-9.15); NEUTROPHILS PERCENT AUTO 48 % (41-73)
[2025-02-02 07:35] LABS: Alanine Aminotransfer (ALT/SGP 44.0 U/L (12-78); Albumin, Blood 2.1 g/dL (3.4-5.0); Albumin/Globulin Ratio 0.6 (0.8-1.8); Anion Gap 7.0 mmol/L (3-11); Aspartate Aminotrans (AST/SGOT 31.0 U/L (12-37); Bilirubin, Total 0.8 mg/dL (0.1-1.0); Blood Urea Nitrogen 12.0 mg/dL (8-24); CO2, Blood 29.0 mmol/L (21-32); Calcium, Blood 8.4 mg/dL (8.5-10.1); Chloride, Blood 99.0 mmol/L (98-108); Creatinine, Blood 0.49 mg/dL (0.40-1.00); Globulin, Blood 3.5 g/dL (2.2-4.0); Glucose, Blood 98.0 mg/dL (70-99); Potassium, Blood 3.9 mmol/L (3.5-5.5); Sodium, Blood 131.0 mmol/L (136-145); Total Protein, Blood 5.6 g/dL (6.4-8.2)
[2025-02-02 07:57] VITALS: BP 111/63
[2025-02-02] MEDS ORDERED: MIDO5 PO (14:18)
[2025-02-02] MEDS ORDERED: OXAYDO5 M1 PO (14:19)
--- NOTE | 2025-02-02 17:15 | NUR ---
DISCHARGE: PT GIVEN OSTOMY CARE EDUCATION AND PACKET OF RESOURCES. HOME HEALTH TO SEE PT TOMORROW. PT DAUGHTER AT BEDSIDE FOR EDUCATION. THIS RN CHANGED OSTOMY APPLIANCE. PT SENT HOME WITH OSTOMSY SUPPLIES. DC PACKET PRINTED AND PT EDUCATED. IV DC'D WNL, TIP INTACT. PT LEFT UNIT AT ABOUT 1640
== END 2025-02-02 16:55 | disposition home health service (06) | DRG 329 ==
LOC: ER 17:15 → MEDS 17:16 → ERHOLD 17:16 → MEDS 01-18 04:38 → SURS 01-18 15:36 → ICUE 01-18 15:36 → PCU 01-18 15:36 → SURS 01-18 15:36 → MEDS 01-18 15:36 → PCU 01-19 06:08 → MEDS 01-22 16:00 → SURS 01-25 13:52 → ICUE 01-25 21:00 → SURS 01-27 19:49
PROVIDERS: Emergency Medicine; Hospitalist; Registered Nurse; Student in an Organized Health Care Education/Training Program; Surgery; ADMIT Student in an Organized Health Care Education/Training Program
PROC: 3E03329 Introduction of Other Anti-infective into Peripheral Vein, Percutaneous Approach (ICD-10-PCS; 2025-01-17)
PROC: 3E0336Z Introduction of Nutritional Substance into Peripheral Vein, Percutaneous Approach (ICD-10-PCS; 2025-01-20)
PROC: 0D1B0Z4 Bypass Ileum to Cutaneous, Open Approach (ICD-10-PCS; 2025-01-25)
PROC: 0DBU0ZZ Excision of Omentum, Open Approach (ICD-10-PCS; 2025-01-25)
PROC: 3E033XZ Introduction of Vasopressor into Peripheral Vein, Percutaneous Approach (ICD-10-PCS; 2025-01-25)
PROC: 30233N1 Transfusion of Nonautologous Red Blood Cells into Peripheral Vein, Percutaneous Approach (ICD-10-PCS; 2025-01-25)
PROC: 30233J1 Transfusion of Nonautologous Serum Albumin into Peripheral Vein, Percutaneous Approach (ICD-10-PCS; 2025-01-25)
PROC: 0DTE0ZZ Resection of Large Intestine, Open Approach (ICD-10-PCS; principal; 2025-01-25 10:00)
PROC: 0T9B70Z Drainage of Bladder with Drainage Device, Via Natural or Artificial Opening (ICD-10-PCS; 2025-01-26)
DX: C18.7 Malignant neoplasm of sigmoid colon (principal); E43 Unspecified severe protein-calorie malnutrition; Z68.1 Body mass index [BMI] 19.9 or less, adult; E87.1 Hypo-osmolality and hyponatremia; A04.5 Campylobacter enteritis; A08.11 Acute gastroenteropathy due to Norwalk agent; K50.10 Crohn's disease of large intestine without complications; K56.699 Other intestinal obstruction unspecified as to partial versus complete obstruction; C78.6 Secondary malignant neoplasm of retroperitoneum and peritoneum; E78.00 Pure hypercholesterolemia, unspecified; E03.9 Hypothyroidism, unspecified; K52.832 Lymphocytic colitis; I48.91 Unspecified atrial fibrillation; F17.200 Nicotine dependence, unspecified, uncomplicated; E86.0 Dehydration; D72.825 Bandemia; I49.1 Atrial premature depolarization; D64.89 Other specified anemias; R73.9 Hyperglycemia, unspecified; E83.42 Hypomagnesemia; E83.39 Other disorders of phosphorus metabolism; I95.9 Hypotension, unspecified; E16.2 Hypoglycemia, unspecified; Z79.890 Hormone replacement therapy; Z79.52 Long term (current) use of systemic steroids; Z86.0102 Personal history of hyperplastic colon polyps
CPT/HCPCS: 36415; 36430; 74018; 74177; 80048; 80053; 82947; 83036; 83605; 83690; 83735; 84100; 84443; 84478; 85014; 85018; 85025; 86850; 86900; 86901; 86923; 87040; 87507; 88309; 88341; 88342; 93005; 93010; 93306; 94760; 96365; 96366; 96367; 96375; 96376; 97110; 97116; 97161; 97165; 97530; 97535; 99285-25; A9270; G0378; J0456; J0780; J1100; J1171; J1644; J1650; J1885; J2405; J2470; J2543; J2704; J2765; J2919; J3010; J3411; J3475; J7030; J7040; J7050; J7060; J7070; J7120; P9016; P9045; P9047; Q9967

== ENCOUNTER 2025-02-09 14:19 | Inpatient (IN) | payer MEDICARE ==
[~2025-02-09] VITALS: Ht 162.6 cm; Wt 42.6 kg
[~2025-02-09 14:19] MED LIST changes: -ACET325 PO; -LEVE500 PO; -MEGE40T PO; -MESA250ER; -MIRT15 PO; -ONDA4 PO; -PANT20 PO; -ZENPEP DR 20,01 EACH PO
[2025-02-09] MEDS ORDERED: NS 500 ML IV SCH (14:40)
[2025-02-09 15:03] LABS: BASOPHILS ABSOLUTE AUTO 0.05 K/mm3 (0.00-0.23); BASOPHILS PERCENT AUTO 1 % (0-2); EOSINOPHILS ABSOLUTE AUTO 0.02 K/mm3 (0.00-0.68); EOSINOPHILS PERCENT AUTO 0 % (0-6); Hematocrit 29.1 % (33.0-51.0); Hemoglobin 9.5 g/dL (11.5-16.0); IMMATURE GRAN ABSOLUTE AUTO 0.01 K/mm3 (0.00-0.10); IMMATURE GRAN PERCENT AUTO 0 % (0-1); LYMPHOCYTES ABSOLUTE AUTO 1.50 K/mm3 (0.84-5.20); LYMPHOCYTES PERCENT AUTO 31 % (21-46); MONOCYTES ABSOLUTE AUTO 0.42 K/mm3 (0.16-1.47); MONOCYTES PERCENT AUTO 9 % (4-13); Mean Corpuscular HGB Conc 32.6 g/dL (31.5-36.5); Mean Corpuscular Volume 98 fL (80-100); NEUTROPHILS ABSOLUTE AUTO 2.80 K/mm3 (1.96-9.15); NEUTROPHILS PERCENT AUTO 58 % (41-73); NRBC ABSOLUTE 0.00 K/mm3 (0.00-0.02); NRBC Auto 0.0 /100 WBC (0.0-0.2); Platelet Count 523 K/mm3 (150-400); RDW Coefficient Variation 15.3 % (11.7-14.2); RDW Standard Deviation 55.1 fL (35.1-46.3)
[2025-02-09 15:26] LABS: Alanine Aminotransfer (ALT/SGP 31 U/L (12-78); Albumin, Blood 3.1 g/dL (3.4-5.0); Albumin/Globulin Ratio 0.8 (0.8-1.8); Anion Gap 10 mmol/L (3-11); Aspartate Aminotrans (AST/SGOT 35 U/L (12-37); Bilirubin, Total 0.7 mg/dL (0.1-1.0); Blood Urea Nitrogen 11 mg/dL (8-24); CO2, Blood 27 mmol/L (21-32); Calcium, Blood 9.0 mg/dL (8.5-10.1); Chloride, Blood 99 mmol/L (98-108); Creatinine, Blood 0.39 mg/dL (0.40-1.00); Ethanol (Alcohol), Blood, Med <3 mg/dL; Globulin, Blood 3.8 g/dL (2.2-4.0); Glucose, Blood 129 mg/dL (70-99); Potassium, Blood 3.7 mmol/L (3.5-5.5); Sodium, Blood 132 mmol/L (136-145); Total Protein, Blood 6.9 g/dL (6.4-8.2)
[2025-02-09] MEDS ORDERED: levETIRAcetam 2,000 MG in NS 100 ML IV ONE (16:00)
[2025-02-09] MEDS ORDERED: Ondansetron HCl 2 MG / ML 2ML Vial IV PRN (16:25)
[2025-02-09] MEDS ORDERED: LORazepam 2 MG/ML 1ML Injection IV PRN (16:25)
[2025-02-09 16:26] LABS: Source, Urine Clean Catch
[2025-02-09 16:29] LABS: Bilirubin, Urine Neg (Neg); Color, Urine Amber (P-Yellow); Glucose Qualitative, Urine Neg (Neg); Ketones, Urine Neg (Neg); Leukocyte Esterase, Urine 1+ (Neg); Protein, Urine 2+ (Neg); Specific Gravity, Urine 1.020 (1.003-1.022); Urobilinogen, Urine NORM (Normal)
[2025-02-09 16:35] LABS: Yeast/Fungi Urine Rare /hpf
[2025-02-09 17:17] LABS: Magnesium, Blood 1.9 mg/dL (1.6-2.4); Phosphorus, Blood 2.9 mg/dL (2.5-4.9)
[2025-02-09 18:00] VITALS: BP 102/77
[2025-02-09] MEDS ORDERED: ONDA4 PO (18:11)
--- NOTE | 2025-02-09 18:55 | NUR ---
ARRIVAL TO UNIT PATIENT SLID OVER TO BED VIA SLIDE SHEET, ABLE TO PROVIDE SOME ASSITANCE WITH REPOSITIONING. PT IS A/O X 4, ABLE TO MAKE NEEDS KNOWN AND IS COOPERATIVE WITH CARE. PT AT BEDSIDE. STAGE 1 PRESSURE ULCER TO COCCYX PRESENT ON ADMISSION, PICTURES OBTAINED. SR 60-70s, BP SOFT BUT STABLE. ALL OTHER VSS. SEIZURE PRECAUTIONS IN PLACE AND CALL LIGHT WITHIN REACH.
--- NOTE | 2025-02-09 19:08 | NUR ---
SHIFT SUMMARY NO ACUTE CHANGES SINCE ARRIVAL TO UNIT AT 1750.
[2025-02-09 19:17] VITALS: BP 109/48
[2025-02-09] MEDS ORDERED: CefTRIAXone Sodium 1,000 MG in NS 100 ML IV SCH (22:00)
[2025-02-10] VITALS (7 sets, daily range): BP systolic 96–130; BP diastolic 64–82
[2025-02-10 04:43] LABS: BASOPHILS ABSOLUTE AUTO 0.09 K/mm3 (0.00-0.23); BASOPHILS PERCENT AUTO 2 % (0-2); EOSINOPHILS ABSOLUTE AUTO 0.06 K/mm3 (0.00-0.68); EOSINOPHILS PERCENT AUTO 1 % (0-6); Hematocrit 27.1 % (33.0-51.0); Hemoglobin 8.6 g/dL (11.5-16.0); IMMATURE GRAN ABSOLUTE AUTO 0.02 K/mm3 (0.00-0.10); IMMATURE GRAN PERCENT AUTO 0 % (0-1); LYMPHOCYTES ABSOLUTE AUTO 2.21 K/mm3 (0.84-5.20); LYMPHOCYTES PERCENT AUTO 37 % (21-46); MONOCYTES ABSOLUTE AUTO 0.78 K/mm3 (0.16-1.47); MONOCYTES PERCENT AUTO 13 % (4-13); Mean Corpuscular HGB Conc 31.7 g/dL (31.5-36.5); Mean Corpuscular Volume 102 fL (80-100); NEUTROPHILS ABSOLUTE AUTO 2.77 K/mm3 (1.96-9.15); NEUTROPHILS PERCENT AUTO 47 % (41-73); NRBC ABSOLUTE 0.00 K/mm3 (0.00-0.02); NRBC Auto 0.0 /100 WBC (0.0-0.2); Platelet Count 452 K/mm3 (150-400); RDW Coefficient Variation 15.5 % (11.7-14.2); RDW Standard Deviation 58.0 fL (35.1-46.3)
[2025-02-10 05:13] LABS: Magnesium, Blood 1.9 mg/dL (1.6-2.4)
[2025-02-10 05:14] LABS: Alanine Aminotransfer (ALT/SGP 26.0 U/L (12-78); Albumin, Blood 2.7 g/dL (3.4-5.0); Albumin/Globulin Ratio 0.8 (0.8-1.8); Anion Gap 6.0 mmol/L (3-11); Aspartate Aminotrans (AST/SGOT 43.0 U/L (12-37); Bilirubin, Total 0.6 mg/dL (0.1-1.0); Blood Urea Nitrogen 7.0 mg/dL (8-24); CO2, Blood 27.0 mmol/L (21-32); Calcium, Blood 8.6 mg/dL (8.5-10.1); Chloride, Blood 104.0 mmol/L (98-108); Creatinine, Blood 0.42 mg/dL (0.40-1.00); Globulin, Blood 3.5 g/dL (2.2-4.0); Glucose, Blood 82.0 mg/dL (70-99); Potassium, Blood 4.1 mmol/L (3.5-5.5); Sodium, Blood 133.0 mmol/L (136-145); Total Protein, Blood 6.2 g/dL (6.4-8.2)
--- NOTE | 2025-02-10 06:05 | NUR ---
SHIFT SUMMARY PT SLEEPY BUT EASILY AROUSABLE. A&O X4, SHE IS CALM, COOPERATIVE TO CARE. SEIZURE PADS IN PLACE. NO SEIZURE ACTIVITY NOTED T/O NIGHT, PT ALSO DECLINED NOTICING ANY. HR IN THE 50'S-70'S, SINUS RHYTHM. SHE DENIES ANY CP/PRESSURE, NUMB/TINGLING, SBP SOFT IN THE 100 S, MAP >65. Sp02 >92% ON RA, SHE DENIES ANY SOB. PT HAS NEW OSTOMY BAG IN PLACE. OSTOMY BAG EMPTIED ONCE T/O SHIFT. PT HAS FLUIDS INFUSING PER EMAR. PT RESTING IN BED AT THIS TIME. CALL LIGHT IN REACH. WILL MONITOR PT AND REPORT TO ONCOMING RN.
[2025-02-10] MEDS ORDERED: FLU VACC TS2025(65UP)/MF59C/PF 45 MCG/0.5 ML SYRINGE IM SCH (09:00)
[2025-02-10] MEDS ORDERED: Enoxaparin 40 MG/0.4 ML SYR SC SCH (09:00)
[2025-02-10] MEDS ORDERED: MIRT15 PO (09:46)
[2025-02-10] MEDS ORDERED: MESA250ER (09:48)
--- NOTE | 2025-02-10 18:37 | NUR ---
SHIFT NOTE: PT DID NOT HAVE SEIZURE ACTIVITY T/O SHIFT. PT DENIES PAIN. HOME MEDS RECONCILED, NOTIFIED AND HOME MEDS ORDERED. PT EDUCATED ON NEED TO CONTINUE TO INCREASE PO INTAKE. PT REPORTS LIKING VANILLA ENSURES. PT'S IS AT BEDSIDE AND UPDATED ON PLAN OF CARE. PT DENIES NEEDS AT THIS TIME, PLAN TO DC IN AM. CARE CONTINUES
[2025-02-11 03:38] VITALS: BP 119/61
[2025-02-11 03:55] LABS: BASOPHILS ABSOLUTE AUTO 0.09 K/mm3 (0.00-0.23); BASOPHILS PERCENT AUTO 2 % (0-2); EOSINOPHILS ABSOLUTE AUTO 0.04 K/mm3 (0.00-0.68); EOSINOPHILS PERCENT AUTO 1 % (0-6); Hematocrit 28.1 % (33.0-51.0); Hemoglobin 9.0 g/dL (11.5-16.0); IMMATURE GRAN ABSOLUTE AUTO 0.01 K/mm3 (0.00-0.10); IMMATURE GRAN PERCENT AUTO 0 % (0-1); LYMPHOCYTES ABSOLUTE AUTO 2.40 K/mm3 (0.84-5.20); LYMPHOCYTES PERCENT AUTO 46 % (21-46); MONOCYTES ABSOLUTE AUTO 0.63 K/mm3 (0.16-1.47); MONOCYTES PERCENT AUTO 12 % (4-13); Mean Corpuscular HGB Conc 32.0 g/dL (31.5-36.5); Mean Corpuscular Volume 100 fL (80-100); NEUTROPHILS ABSOLUTE AUTO 2.06 K/mm3 (1.96-9.15); NEUTROPHILS PERCENT AUTO 39 % (41-73); NRBC ABSOLUTE 0.00 K/mm3 (0.00-0.02); NRBC Auto 0.0 /100 WBC (0.0-0.2); Platelet Count 474 K/mm3 (150-400); RDW Coefficient Variation 15.4 % (11.7-14.2); RDW Standard Deviation 56.7 fL (35.1-46.3)
[2025-02-11 04:23] LABS: Thyroid Stimulating Hormone 52.6 uIU/mL (0.360-4.800)
[2025-02-11 04:24] LABS: Alanine Aminotransfer (ALT/SGP 22.0 U/L (12-78); Albumin, Blood 2.7 g/dL (3.4-5.0); Albumin/Globulin Ratio 0.8 (0.8-1.8); Anion Gap 5.0 mmol/L (3-11); Aspartate Aminotrans (AST/SGOT 25.0 U/L (12-37); Bilirubin, Total 0.6 mg/dL (0.1-1.0); Blood Urea Nitrogen 8.0 mg/dL (8-24); CO2, Blood 30.0 mmol/L (21-32); Calcium, Blood 8.4 mg/dL (8.5-10.1); Chloride, Blood 102.0 mmol/L (98-108); Creatinine, Blood 0.38 mg/dL (0.40-1.00); Globulin, Blood 3.6 g/dL (2.2-4.0); Glucose, Blood 91.0 mg/dL (70-99); Potassium, Blood 3.4 mmol/L (3.5-5.5); Sodium, Blood 134.0 mmol/L (136-145); Total Protein, Blood 6.3 g/dL (6.4-8.2)
[2025-02-11] MEDS ORDERED: Potassium Chl 20MEQ/Water100ML 100 ML IV STA (06:16)
--- NOTE | 2025-02-11 06:19 | NUR ---
SHIFT SUMMARY A&O X4, SHE IS CALM, COOPERATIVE TO CARE. SEIZURE PADS IN PLACE. NO SEIZURE ACTIVITY T/O NIGHT. PT MEDICAL STATUS WITH NO TELE. HR IN THE 60'S WITH NBP READINGS. SHE DENIES ANY CP/PRESSURE, NUMB/TINGLING, SBP STABLE. Sp02 >92% ON RA, SHE DENIES ANY SOB. PT HAS NEW OSTOMY BAG IN PLACE, STOMA RED AND MOIST. OSTOMY BAG EMPTIED T/O SHIFT. PT RESTING IN BED AT THIS TIME. CALL LIGHT IN REACH. WILL MONITOR PT AND REPORT TO ONCOMING RN. PT HAD POTASSIUM OF 3.4 THIS AM ON MORNING LABS. MD NOTIFIED, MD TO REVIEW AND PLACE ORDERS.
[2025-02-11] MEDS ORDERED: NS 250 ML IV PRN (06:35)
[2025-02-11 07:57] VITALS: BP 121/66
[2025-02-11 11:37] VITALS: BP 103/74
--- NOTE | 2025-02-11 12:06 | NUR ---
UPDATE PATIENT TO CT VIA CART. PATIENT IN NO SIGNS OF DISTRESS. VSS
[2025-02-11 13:52] VITALS: BP 101/64
[2025-02-11 15:51] VITALS: BP 118/62
--- NOTE | 2025-02-11 18:20 | NUR ---
SHIFT SUMMARY PATIENT IS ALERT AND ORIENTED, ABLE TO FOLLOW COMMANDS AND MAKE NEEDS KNOWN. NO EVIDENCE OF SEIZURE ACTIVITY THIS SHIFT. VSS, SPO2 >90% ON RA. PATIENT DENIES PRESENCE OF CHEST PAIN, PRESSURE OR SHORTNESS OF BREATH. PATIENT REPORTING ABDOMINAL PAIN THAT RADIATES POSTERIORLY, POOR APPETITE THIS SHIFT, PROVIDER MADE AWARE, NEW ORDERS RECEIVED. SURGICAL CONSULT TO BE DONE IN AM ON 02/12/25. NEW OSTOMY PRESENT, BROWN/GREEN STOOL PRESENT IN OSTOMY BAG. SKIN BREAKDOWN NOTED ON COCCYX, MEPILEX IN PLACE, REPOSITIONS ENCOURAGED THROUGHOUT SHIFT, OFFLOADING DEVICE PROVIDED. PATIENT IS A SBA TO BATHROOM FOR CORD MANAGEMENT WHEN NECESSARY. PATIENT UP IN BED, BED IN LOWEST POSITION, CALL LIGHT WITHIN REACH.
[2025-02-11 19:48] VITALS: BP 102/67
[2025-02-12] MEDS ORDERED: Potassium Chl 20MEQ/Water100ML 100 ML IV ONE (03:00)
[2025-02-12 03:35] VITALS: BP 97/61
[2025-02-12 04:44] LABS: Carcinoembryonic Antigen 4.5 ng/mL (0.0-3.0)
[2025-02-12 04:55] LABS: Alanine Aminotransfer (ALT/SGP 22.0 U/L (12-78); Albumin, Blood 2.9 g/dL (3.4-5.0); Albumin/Globulin Ratio 0.8 (0.8-1.8); Anion Gap 7.0 mmol/L (3-11); Aspartate Aminotrans (AST/SGOT 27.0 U/L (12-37); Bilirubin, Total 0.9 mg/dL (0.1-1.0); Blood Urea Nitrogen 8.0 mg/dL (8-24); CO2, Blood 29.0 mmol/L (21-32); Calcium, Blood 8.9 mg/dL (8.5-10.1); Chloride, Blood 100.0 mmol/L (98-108); Creatinine, Blood 0.46 mg/dL (0.40-1.00); Globulin, Blood 3.6 g/dL (2.2-4.0); Glucose, Blood 85.0 mg/dL (70-99); Potassium, Blood 3.7 mmol/L (3.5-5.5); Sodium, Blood 132.0 mmol/L (136-145); Total Protein, Blood 6.5 g/dL (6.4-8.2)
--- NOTE | 2025-02-12 04:58 | NUR ---
SHIFT SUMMARY: PATIENT IS A&OX4. SHE IS ABLE TO MAKE HER NEEDS KNOWN AND FOLLOWS COMMANDS. NO EVIDENCE OF SEIZURE ACTIVITY THROUGHOUT THIS SHIFT. PATIENT IS ON ROOM AIR WITH >90% SPO2. SBP HAS BEEN BETWEEN 90'S-LOW 100'S - MD AWARE AND PATIENT HAS SCHEDULED MIDODRINE PER MAR. PATIENT REPORTED NEW PAIN IN ADDITION TO THE PAIN SHE'S BEEN HAVING - NEW PAIN IN BILATERAL HIPS WELL HER ABD AND LOWER BACK RATING IT A 8/10 THAT WAS ACHING/STABBING - DR. SALAZAR WAS NOTIFIED AND PRN PO PAIN MEDICATION DIRECTIONS WERE ADJUSTED PER MAR. PATIENTS PAIN IS BEST MANAGED WITH PO OXY AND TYLENOL TOGETHER. PATIENTS ILEOSTOMY ON RLQ HAS LIQUID DARK GREEN OUTPUT AND IS PRODUCING GAS. OSTOMY APPLIANCE IS C/D/I. PATIENT HAS HAD DECREASED PO INTAKE DUE TO INCREASED PAIN IN ABD/BACK PER PATIENT WHEN EATING - DIETITIAN CONSULT HAS BEEN ORDERED. SURGICAL CONSULT COMPLETED EARLY THIS MORNING VIA ANSWERING SERVICE. PATIENT IS LAYING IN BED WITH CALL LIGHT IN REACH.
--- NOTE | 2025-02-12 05:46 | NUR ---
UPDATED LAB RESULTS TO DR. SALAZAR: PATIENTS MORNING LAB RESULTS ARE COMPLETE. NOTIFIED DR. SALAZAR ABOUT PATIENTS SODIUM BEING 132 THIS MORNING- ASKING FOR REPLACEMENT ELECTROLYTES TO CORRECT THE ELECTROLYTE IMBALANCE. DR. SALAZAR RESPONDED STATING "I WILL LOOK INTO AND ORDER SOMETHING."
[2025-02-12 07:54] VITALS: BP 115/71
--- NOTE | 2025-02-12 10:00 | NUR ---
JOINT VISIT WITH , BEDSIDE RN'S, [facility] [place] AND THIS PC RN. SIGNIFICANT OTHER TRISTA AND SON KULWANT ALSO PRESENT. 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 PT EXPRESSED FRUSTRATION AND DIFFICULTY ACCEPTING NEW DX. SHE AND HER SO REPORT BEING TOLD ON HER LAST VISIT, S/P COLECTOMY AND OMENTECTOMY (01/25/25), "THREE DOCTORS SAID THEY GOT EVERYTHING." CONSULTED WITH (ONCOLOGY) RE: NEW PANCREATIC MASS. TO SEE PT TODAY. THIS PC RN CONSULTED WITH DIRECTOR PRISON RE: SIGNIFICANT WT LOSS, PAIN AND BLOATING AFTER EATING A [place]OG[place]T AND HALF AN ENSURE. PT HAS NOT EATEN A MEAL IN GREATER THAN 2 MONTHS. DIRECTOR PRISON TO REVIEW POSSIBILITY OF PANCREATIC ENZYMES WITH MEALS AND APPETITE STIMULANT. BEDSIDE RN TO NOTIFY PC WHEN ROUNDS TODAY.
[2025-02-12 11:49] VITALS: BP 97/60
[2025-02-12 14:08] VITALS: BP 104/67
[2025-02-12 14:09] VITALS: BP 104/67
--- NOTE | 2025-02-12 16:00 | NUR ---
(ONCOLOGY), BEDSIDE RN'S AND THIS PC RN MET WITH PT AND FAMILY THIS AFTERNOON. REVIEWED PT'S UNDERSTANDING OF HER MEDICAL CONDITION. PT EXPRESSED UNCERTAINTIES. STARTED EDUCATION WITH HER HX OF COLITIS. SHE DENIES ANY KNOWLEDGE OF CROHN'S DISEASE. PROVIDER REPORTS COLON IS NOT HER PRIMARY SOURCE OF CANCER MASS WAS ON THE OUTSIDE OF THE COLON AND NOT INTERNAL. UNKNOWN PRIMARY SOURCE OF CANCER AT THIS TIME. FURTHER WORKUP IS NEEDED FOR AN ACCURATE CARE PLAN TO BE FORMULATED IF PT IS WANTING TO CONTINUE SEEKING CURRATIVE CARE. ALBERTINA STATED, "I WANT TO LIVE!" REPORTS HE WILL ORDER ADDITIONAL TESTING ON THE BX SAMPLES TAKEN FROM HER COLECTOMY. PER VERBAL ORDERS THIS PC RN PLACED ORDERS FOR CT HEAD WWO TO R/O BRAIN METS AND ADDED APPETITE STIMULANT. FUTURE ORDER FOR CREON PENDING UPDATED WEIGHT AND CONSULTATION WITH MANAGER ANALYSIS. CONTINUE TO PURSUE FULL TX. THIS PC RN TO CANCEL PT'S APPT WITH FOR 02/14/25 AND R/S TO THE LAST WEEK OF JANUARY TO ALLOW TIME FOR TEST RESULTS.
--- NOTE | 2025-02-12 18:06 | NUR ---
SHIFT SUMMARY PATIENT IS ALERT AND ORIENTED, ABLE TO FOLLOW COMMANDS AND MAKE NEEDS KNOWN. BPs SOFT THIS SHIFT, PATIENT REPORTS CONSISTENT WITH BASELINE. SPO2 >90% ON RA. PATIENT ENDORSING MILD-MODERATE ABDOMINAL DISCOMFORT THIS SHIFT. OSTOMY NOTED ON RIGHT ABDOMEN, STOMA IS RED AND BEEFY, GREEN/BROWN OUTPUT NOTED IN OSTOMY BAG. ONCOLOGY, PALLIATIVE, AND DIETARY CONSULTS DONE THIS SHIFT, SEE NOTES FOR RECOMMENDATIONS. CARE GOALS ESTABLISHED FOR NUTRITION STATUS AND PLAN OF CARE ON DISCHARGE. SEE SHIFT ASSESSMENT FOR FURTHER INFORMATION REGARDING SKIN ASSESSMENT. PATIENT IN INDEPENDENT IN THE ROOM WITH SBA INTERMITTENTLY FOR CORD MANAGEMENT. PATIENT IS UP IN BED, BED IN LOWEST POSITION, CALL LIGHT WITHIN REACH.
[2025-02-12 20:38] VITALS: BP 105/80
[2025-02-13 05:02] VITALS: BP 92/65
--- NOTE | 2025-02-13 06:04 | NUR ---
SHIFT SUMMARY PT IS A&O X4, ABLE TO MAKE NEEDS KNOWN, MOVING ALL EXTREMITIES WITH PURPOSE, OBEYS COMMANDS, CALLS APPROPRIATELY, REPOSITIONING SELF IN BED. SPO2 GREATER THAN 92% ON RA, PT DENIES SOB T/O THIS SHIFT. HR 60-70 S, PULSES PRESENT T/O, BP STABLE WITH MAP GREATER THAN 65, PT DENIES CHEST P/P T/O THIS SHIFT. BOWEL TONES PRESENT IN ALL 4Q, PT DENIES FEELINGS OF NAUSEA OR CONSTIPATION, PT REPORTING INTERMITTENT AND PAIN THAT WRAPS AROUND TO HER BACK/MEDICATED PER ORDERS, ILLIOSTOMY DRESSING SECURE, STOMA BEEFY AND RED. VOIDING IND, URINE YELLOW IN COLOR. BED LOWEST POSITION, CALL LIGHT IN REACH, AWAITING TO GIVE REPORT TO ONCOMING RN.
[2025-02-13 08:00] VITALS: BP 108/71
[2025-02-13] MEDS ORDERED: Amylase/Lipase/Protease DR 20,000 PO SCH (08:30)
[2025-02-13] MEDS ORDERED: ACET325 PO (10:20)
[2025-02-13] MEDS ORDERED: LEVE500 PO (10:24)
[2025-02-13] MEDS ORDERED: ZENPEP DR 20,01 EACH PO (10:26)
[2025-02-13] MEDS ORDERED: PANT20 PO (10:26)
[2025-02-13] MEDS ORDERED: MEGE40T PO (10:26)
--- NOTE | 2025-02-13 14:43 | NUR ---
SUPPORTIVE VISIT. ALBERTINA IS LOOKING FORWARD TO GOING HOME TODAY. SHE REPORTS PAIN IS 4/10. PAIN GOAL IS 3/10. SHE TOLERATED SMALL AMOUNTS OF ORAL INTAKE T/O YESTERDAY. SHE IS ABLE TO TEACH BACK THE IMPORTANCE OF SM FREQUENT MEALS. REINFORCED PANCREATIC ENZYME (CREON) WITH ORAL INTAKE TO AID IN NUTRITIONAL ABSORPTION. PT REPORTS [facility] HAS BEEN SEEING PT TWICE A WEEK FOR RN AND OSTOMY CARE. PT TO RESUME H/H ON DISCHARGE. APPT WITH SCHEDULED 02/26/25 @ 1818. PT AND SON KULWANT CONFIRMED ABILITY TO MAKE ABOVE STATED APPT.
== END 2025-02-13 11:56 | disposition home health service (06) | DRG 100 ==
LOC: ER 14:19 → PCU 14:20
PROVIDERS: Emergency Medicine; Internal Medicine; Student in an Organized Health Care Education/Training Program; ADMIT Student in an Organized Health Care Education/Training Program
DX: R56.9 Unspecified convulsions (principal); E43 Unspecified severe protein-calorie malnutrition; N39.0 Urinary tract infection, site not specified; R64 Cachexia; Z68.1 Body mass index [BMI] 19.9 or less, adult; E78.00 Pure hypercholesterolemia, unspecified; E03.9 Hypothyroidism, unspecified; D64.9 Anemia, unspecified; I48.0 Paroxysmal atrial fibrillation; C26.9 Malignant neoplasm of ill-defined sites within the digestive system; K86.89 Other specified diseases of pancreas; F17.210 Nicotine dependence, cigarettes, uncomplicated; C80.1 Malignant (primary) neoplasm, unspecified; Z98.890 Other specified postprocedural states; Z90.49 Acquired absence of other specified parts of digestive tract; Z79.52 Long term (current) use of systemic steroids; Z79.82 Long term (current) use of aspirin; Z79.890 Hormone replacement therapy; Z79.899 Other long term (current) drug therapy
CPT/HCPCS: 36415; 70450; 70470; 70551; 74177; 80053; 80320; 81001; 82140; 82378; 82550; 82947; 83605; 83735; 84100; 84439; 84443; 85025; 86301; 86304; 87086; 93005; 93010; 94762; 96361; 96365; 96366; 96367; 96372; 99285-25; A9270; G0378; J0696; J1650; J1953; J2470; J3480; J7030; J7050; J7120; Q0167; Q9967

== ENCOUNTER → 2025-02-09 | Outpatient (CLI) | payer MEDICARE ==
[~2025-02-09] MED LIST changes: +ACET325 PO; +ASPI81CH PO; -ATOR10 PO; +LEVE500 PO; +LEVSOD100 PO; +MEGE40T PO; +MESA250ER; +MIDO5 PO; +MIRT15 PO; +ONDA4 PO; +OXAYDO5 M1 PO; +PANT20 PO; +ZENPEP DR 20,01 EACH PO
[2025-02-09 15:43] LABS: BASOPHILS ABSOLUTE AUTO 0.09 K/mm3 (0.00-0.23); BASOPHILS PERCENT AUTO 2 % (0-2); EOSINOPHILS ABSOLUTE AUTO 0.02 K/mm3 (0.00-0.68); EOSINOPHILS PERCENT AUTO 0 % (0-6); Hematocrit 31.5 % (33.0-51.0); Hemoglobin 10.0 g/dL (11.5-16.0); IMMATURE GRAN ABSOLUTE AUTO 0.02 K/mm3 (0.00-0.10); IMMATURE GRAN PERCENT AUTO 0 % (0-1); LYMPHOCYTES ABSOLUTE AUTO 2.27 K/mm3 (0.84-5.20); LYMPHOCYTES PERCENT AUTO 40 % (21-46); MONOCYTES ABSOLUTE AUTO 0.49 K/mm3 (0.16-1.47); MONOCYTES PERCENT AUTO 9 % (4-13); Mean Corpuscular HGB Conc 31.7 g/dL (31.5-36.5); Mean Corpuscular Volume 100 fL (80-100); NEUTROPHILS ABSOLUTE AUTO 2.77 K/mm3 (1.96-9.15); NEUTROPHILS PERCENT AUTO 49 % (41-73); NRBC ABSOLUTE 0.00 K/mm3 (0.00-0.02); NRBC Auto 0.0 /100 WBC (0.0-0.2); Platelet Count 578 K/mm3 (150-400); RDW Coefficient Variation 15.5 % (11.7-14.2); RDW Standard Deviation 57.1 fL (35.1-46.3)
[2025-02-09 15:45] LABS: Alanine Aminotransfer (ALT/SGP 34.0 U/L (12-78); Albumin, Blood 3.3 g/dL (3.4-5.0); Albumin/Globulin Ratio 0.8 (0.8-1.8); Anion Gap 8.0 mmol/L (3-11); Aspartate Aminotrans (AST/SGOT 36.0 U/L (12-37); Bilirubin, Total 0.9 mg/dL (0.1-1.0); Blood Urea Nitrogen 9.0 mg/dL (8-24); CO2, Blood 29.0 mmol/L (21-32); Calcium, Blood 9.0 mg/dL (8.5-10.1); Chloride, Blood 99.0 mmol/L (98-108); Creatinine, Blood 0.46 mg/dL (0.40-1.00); Globulin, Blood 4.1 g/dL (2.2-4.0); Glucose, Blood 92.0 mg/dL (70-99); Potassium, Blood 3.8 mmol/L (3.5-5.5); Sodium, Blood 132.0 mmol/L (136-145); Total Protein, Blood 7.4 g/dL (6.4-8.2)
== END ==
LOC: LAB SHORT 13:34 → LAB 13:34
PROVIDERS: Physician Assistant
DX: C80.1 Malignant (primary) neoplasm, unspecified (principal)
CPT/HCPCS: 80053; 85025